=== PATIENT | female | born 1960 | race Caucasian/White ===

== ENCOUNTER 2016-03-26 12:56 | Inpatient (IN) | payer OTHER ==
[~2016-03-26] VITALS: Ht 167.6 cm; Wt 59.0 kg
[~2016-03-26 12:56] MED LIST: FLEXERIL10 MG PO; MEDROL DOSEPAK1 PAC PO; MOTRIN 600 MG600 MG PO; PERCOCET 325 MG1 TA2 PO; PERCOCET 325 MG1 TA3 PO; VALIUM 10 MG. T10 MG PO; VALIUM5 M1 PO; ZOFRAN ODT4 M1 SL
--- NOTE | 2016-03-26 13:07 | NUR ---
PT BIBA FROM HOME FOR HYPERTENSION, AND ?SEIZURE LIKE ACTIVITY. 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 LAST DRINK YESTERDAY MORNING. PT ALSO AMS, ABLE TO ANSWER SOME QUESTIONS APPROPRIATELY. PT +NAUSEA/VOMITING. PT ALSO HAS GARBLED SPEECH. PT ALSO FELL TODAY. PT HAD SEIZURE AFTER ARRIVAL AND WAS GIVEN 2MG IV ATIVAN.
[2016-03-26 13:09] VITALS: BP 212/122
--- NOTE | 2016-03-26 13:15 | NUR ---
PT NOTED HAVE HER EYES OPEN WITH CLENCHING OF HER HANDS AND SCANT AMOUNT OF SALIVA, MD GARNERAMMED AT BEDSIDE WITH PT AND PT MEDICATED ORDERED WITH ATIVAN
--- NOTE | 2016-03-26 13:20 | NUR ---
PT'S SPEECH NOTED TO BE SLURRED AND GARBLED AND UNABLE TO REALLY VERBALIZE RESPONSE. MD IS AWARE OF FINDING
--- NOTE | 2016-03-26 13:20 | NUR ---
PT LEFT AND BACK FROM CAT SCAN
[2016-03-26 13:30] VITALS: BP 202/118
--- NOTE | 2016-03-26 13:39 | ED AMS/SEIZURE/WEAK/DIZZY ---
History of Present Illness General Chief Complaint: General Adult Stated Complaint: ?SEIZURE, HYPERTENSIVE Source: patient, EMS Exam Limitations: confusion Vital Signs & Intake/Output Vital Signs & Intake/Output Vital Signs Date Time Temp Pulse Resp B/P Pulse O2 O2 Flow FiO2 Ox Delivery Rate 03/26 1646 98.6 93 18 196/112 97 Room Air 03/26 1524 99.0 88 18 190/112 98 Room Air 03/26 1523 99.0 88 18 190/112 03/26 1453 198/110 03/26 1414 98.9 94 18 184/110 03/26 1414 94 184/110 03/26 1356 98.9 93 17 196/116 97 Room Air 03/26 1348 98.3 114 17 202/118 03/26 1330 98.8 114 18 202/118 03/26 1330 114 202/118 03/26 1309 98.6 117 18 212/122 03/26 1309 98.6 117 18 212/122 91 Room Air QUITE HYPERTENSIVE. WILL GIVE LABETOLOL FOR HTN (GLEN JOHNSON,JAMIL) Allergies Coded Allergies: Penicillins (Severe, RASH, HIVES 04/14/15) Triage Note: PT BIBA FROM HOME FOR HYPERTENSION, AND ?SEIZURE LIKE ACTIVITY. 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 LAST DRINK YESTERDAY MORNING. PT ALSO AMS, ABLE TO ANSWER SOME QUESTIONS APPROPRIATELY. PT +NAUSEA/VOMITING. PT ALSO HAS GARBLED SPEECH. PT ALSO FELL TODAY. PT HAD SEIZURE AFTER ARRIVAL AND WAS GIVEN 2MG IV ATIVAN. Triage Nurses Notes Reviewed? yes HPI: 55 YO F W/ PMH OF NV, HTN, AND ALCOHOL ABUSE BIBA FOR FALL AND ALTERED MENTAL STATUS. PER EMS, PATIENT WAS WALKING UP THE STAIRS, NOTED TO SLUMP OVER, LEANED ON WALL AND FELL DOWN. PATIENT IS UNABLE TO RECALL ANY OF THE INCIDENT OTHER THAN SHE HAD TO URINATE. UNKNOWN IF THERE WAS HEAD TRAUMA. PER EMS, PATIENT SEEMED LETHARGIC AND POSSIBLY POST-ICTAL WHEN THEY PICKED HER UP. PT WAS NOTED TO BE QUITE HYPERTENSIVE EN ROUTE TO >200s. SOON AFTER ARRIVAL, PATIENT HAD WITNESSED 30-1MINUTE SEIZURE, WHICH RESOLVED. ATIVAN HAD ALREADY BEEN ORDER AND GIVEN PATIENT'S LAST DRINK WAS YESTERDAY, PT GIVEN THE ATIVAN. PT STATES SHE WAS SOBER FOR 9 YRS UP UNTIL LAST WEEK. SHE HAS BEEN DRINKING APPROX 1/2-1PINT OF LIQUOR DAILY SINCE THEN, BUT NONE TODAY. SHE IS UNSURE WHY SHE STARTED DRINKING AGAIN. LATER, SHE ENDORSES STRESS W/ HER AND SOME GAMBLING ISSUES. CURRENTLY, SHE ENDORSES SYED AND L FOOT PAIN. PT DENIES CP, SOB, ABD PAIN , COUGH, N/V/D, FEVERS OR CHILLS. (JAMIL CARROLL MD) Past History Travel History Traveled to [place] past 21 day No Medical History Any Pertinent Medical History? see below for history (ALCOHOLISM) Neurological: NONE EENT: NONE Cardiovascular: myocardial infarction Respiratory: NONE Gastrointestinal: NONE Hepatic: NONE Renal: NONE Musculoskeletal: CERVICAL STENOSIS AND FX Psychiatric: NONE Endocrine: NONE Blood Disorders: NONE Cancer(s): NONE Surgical History Surgical History: , NECK SURGERY Psychosocial History What is your primary language Japanese Daily Tobacco Use Amount/Type: =< 4 Cigarettes daily ETOH Use: alcoholic, SOBER FOR 9YRS UNTIL LAST WEEK. NOW DRINKING 1PINT/D Family History Hx Contributory? Yes (ALCOHOLISM (RELAPSED X1WK)) (JAMIL CARROLL MD) Review of Systems Review of Systems Constitutional: Reports: weakness. Denies: chills, fever. EENTM: Denies: see HPI. Respiratory: Reports: no symptoms. Cardiovascular: Reports: syncope. GI: Reports: no symptoms. Genitourinary: Reports: no symptoms. Musculoskeletal: Reports: no symptoms. Skin: Reports: no symptoms. Neurological/Psychological: Reports: headache, tremors, tonic-clonic seizures. Hematologic/Endocrine: Reports: no symptoms. Immunologic/Allergic: Reports: no symptoms. All Other Systems: Reviewed and Negative (JAMIL CARROLL MD) Physical Exam Physical Exam General Appearance: well developed/nourished, alert, moderate distress Head: atraumatic, normal appearance Eyes: Bilateral: normal appearance, PERRL, EOMI. Ears, Nose, Throat: normal pharynx, normal ENT inspection, DRY MUCOUS MEMBRANES Neck: normal inspection, supple, full range of motion Respiratory: chest non-tender, no respiratory distress, CRACKLES IN R LOWER LUNG BASE Cardiovascular: normal peripheral pulses, tachycardia Gastrointestinal: normal bowel sounds, soft, non-tender, no organomegaly Rectal: deferred Back: normal inspection, normal range of motion Extremities: TTP OVER L 1ST TARSAL/METATARSAL Neurologic/Psych: no motor/sensory deficits, awake, alert, oriented x 3 Skin: intact, normal color, warm/dry Core Measures ACS in differential dx? No CVA/TIA Diagnosis: Yes NIH Stroke Scale: Total 1 Severe Sepsis Present: No Septic Shock Present: No (GLEN JOHNSON,JAMIL) Progress Differential Diagnosis: alcohol intoxication, CVA/stroke, dehydration, drug intoxication, intracranial Hem., HYPERTENSIVE URGERNCY, ALCOHOL WITHDRAWAL SEIZURE Plan of Care: Orders Procedure Date/time Status MAGNESIUM 03/27 0600 Active CBC WITHOUT DIFFERENTIAL 03/27 0600 Active BASIC ELECTROLYTES PLUS BUN&CR 03/27 0600 Active Heart Healthy Diet 03/26 D Active LACTIC ACID 03/26 1700 Active BASIC ELECTROLYTES PLUS BUN&CR 03/26 1700 Active Admit to inpatient 03/26 1627 Active CULTURE,URINE 03/26 1627 Active LOWER RESPIRATORY CULTURE 03/26 1625 Active ECHOCARDIOGRAM 03/26 1624 Active TRC EVALUATION (GEN) 03/26 1623 Active OXYGEN SETUP (GEN) 03/26 1623 Active Code Status 03/26 1619 Active RAPID VIRAL INFLUENZA A 03/26 1603 Active SWALLOW EVALUATION 03/26 1538 Active Pathway - chart 03/26 1538 Active House Staff 03/26 1538 Active SOCIAL WORK CONSULT 03/26 1538 Active Patient Data 03/26 1505 Active Code Status 03/26 1505 Complete CIWA 03/26 1424 Active Telemetry/Thread Marker 03/26 1339 Active URINE DRUGS OF ABUSE 03/26 1339 Complete URINALYSIS 03/26 1339 Complete PROTHROMBIN TIME 03/26 1339 Complete PHOSPHORUS 03/26 1339 Complete MAGNESIUM 03/26 1339 Complete ETHANOL 03/26 1339 Complete COMPREHENSIVE METABOLIC PANEL 03/26 1339 Complete CBC WITHOUT DIFFERENTIAL 03/26 1339 Complete EKG 03/26 1314 Active VTE Mechanical Prophylaxis 03/26 UNK Active Vital Signs 03/26 UNK Active Telemetry/Thread Marker 03/26 UNK Active Seizure Precautions 03/26 UNK Active Precautions 03/26 UNK Active CIWA 03/26 UNK Active PSYCHIATRIC CONSULT 03/26 UNK Active Current Medications Sig/Kary Start time Last Medication Dose Stop Time Status Admin Heparin Sodium 5,000 UNIT Q8 03/26 2200 UNVr (Porcine) Lorazepam 2 MG Q6 03/26 1800 AC (Ativan) Amlodipine Besylate 10 MG DAILY 03/26 1625 UNVr (Norvasc) Acetaminophen 650 MG Q6 PRN 03/26 1545 AC (Tylenol) Lorazepam 0 Q1P PRN 03/26 1545 AC (Ativan) Cyanocobalamin/ 1 BAG DAILY 03/26 1536 AC Thiamine/Pyridoxine (Vitamin in I.V.) Dextrose/Water 1,000 ML (D5W 1000) Laboratory Tests 03/26/16 1350: Urine Opiates Screen < 100.00, Methadone Screen < 40, Barbiturate Screen < 60, Ur Phencyclidine Scrn < 6.00, Amphetamines Screen < 100, U Benzodiazepines Scrn < 85, Urine Cocaine Screen < 50, Urine Cannabis Screen < 5.00, Urinalysis LIGHT H, Urine Color YEL, Urine Clarity HAZY H, Urine pH 6.0, Ur Specific [place] >= 1.030, Urine Protein 100 H, Urine Ketones NEG, Urine Nitrite NEG, Urine Bilirubin NEG, Urine Urobilinogen 0.2, Ur Leukocyte Esterase NEG, Ur Microscopic SEDIMENT EXAMINED, Urine RBC 5-10 H, Urine WBC 3-5 H, Ur Epithelial Cells FEW, Granular Casts 5-10 H, Urine Hemoglobin MOD H, Urine Glucose NEG 03/26/16 1331: Anion Gap 20 H, Estimated GFR > 60, BUN/Creatinine Ratio 10.0, Glucose 151 H, Calcium 8.9, Phosphorus 4.4, Magnesium 1.2 L, Total Bilirubin 0.9, AST 47 H, ALT 35, Alkaline Phosphatase 97, Total Protein 7.7, Albumin 4.4, Globulin 3.3, Albumin/Globulin Ratio 1.3, PT 14.2 H, INR 1.36 H, CBC w Diff NO MAN DIFF REQ, RBC 5.09, MCV 90.8, MCH 30.8, RDW 14.0, MPV 8.6, Gran % 82.5 H, Monocytes % 5.0 , Eosinophils % 0.3, Basophils % 0.4, Absolute Granulocytes 6.2, Absolute Lymphocytes 0.9 L, Absolute Monocytes 0.4, Absolute Eosinophils 0, Absolute Basophils 0, PUBS MCHC 33.9, Serum Alcohol < 10.0 Microbiology 03/26 1626 URINE ROUT: Urine Culture - ORD 03/26 162 LOWER RESP: Respiratory Culture - ORD 03/26 162 LOWER RESP: Gram Stain - ORD 03/26 1603 NASOPHARYN: Influenza Virus A & B Rapid Smear - ORD ON INITIAL EVAL, PATIENT WAS ACTIVELY SEIZING. PATIENT SEIZURE LASTED 30S-1MIN. DESPITE PATIENT HAD STOPPED SEIZING, PATIENT GIVEN 2MG ATIVAN TO PREVENT ANY FURTHER SEIZURES. PT'S INITIAL NEURO EXAM WAS CONCERNING FOR SLURRED SPEECH, AND R ARM DRIFT. CONCERN FOR CVA VS ICH. PT ORDERED FOR CT HEAD/CSPINE. CT NEGATIVE FOR ICH OR ACUTE CVA. CSPINE NEGATIVE FOR ACUTE FRACTURE. GIVEN SIGNIFICANT HYPERTENSION, PATIENT GIVEN LABETOLOL 10MG FOR BP CONTROL. BROUGHT BP DOWN TO 180 SYSTOLICALLY. CXR DOES NOT SHOW EVIDENCE OF ASPIRATION OR PNEUMONIA. LABS SHOW SEVERAL ELECTROLYTE ABNORMALITIES. LOW K AND LOW MAGNESIUM. WILL REPLETE. PT ALSO GIVEN VALIUM 10MG IV PUSH FOR ALCOHOL WITHDRAWAL AND PLACED ON CIWA PROTOCOL. PLAN TO ADMIT PATIENT TO HOSPITALIST FOR BP CONTROL, ALCOHOL WITHDRAWAL SEIZURE. DISCUSSED W/ DR. GONZALEZ. PATIENT IS FULL CODE. (JAMIL CARROLL MD) Diagnostic Imaging: Viewed by Me: Radiology Read, CT Scan. Discussed w/RAD: Radiology Read, CT Scan. Radiology Impression: 1. No evidence of intracranial hemorrhage or skull fracture. 2. Small hypodensity in the left caudate lobe likely represents a small lacunar infarction, of uncertain age. 3. No evidence of cervical spine fracture. 4. Bony fusion across C4-C6 and anterior cervical spinal fusion across C6-C7 is seen with partial hardware failure again seen, unchanged. Grade 1 anterolisthesis of C7 on T1 is unchanged., cxr: No acute pulmonary disease. Chronic changes. Initial ED EKG: nonspecific ST T wave chg, ST depression, SINUS TACHYCARDIA W/ RATE 115. ST DEPRESSIONS V3-V6 (UNCHANGED FROM PRIOR). NONSPECIFIC INTRAVENTRICULAR DELAY (JAMIL CARROLL MD) Departure Departure Time of Disposition: 1516 Disposition: STILL A PATIENT Condition: Stable Clinical Impression Primary Impression: Alcohol withdrawal seizure Secondary Impressions: Fall (on) (from) other stairs and steps, initial encounter, Hypertensive urgency Referrals: JESSICA DEWEY MD (PCP/Family) Departure Forms: Customer Survey General Discharge Information Admission Note Spoke With: WEST GONZALEZ MD Documentation of Exam: Documentation of any treatments & extenuating circumstances including Concerns Regarding Discharge (functional status, medication knowledge or non-compliance, living conditions, etc.) that warrant an admission rather than observation: 55 YO F BEING ADMITTED FOR HYPERTENSIVE URGENCY AND ALCOHOL WITHDRAWAL SEIZURE. WILL REQUIRE TELEMETRY MONITORING, CIWA PROTOCOL, BP CONTROL. POTENTIAL CRISIS MANAGEMENT INPATIENT. SPOKE TO PATIENT, SHE IS FULL CODE. WILL ADMIT TO DR. GONZALEZ. (JAMIL CARROLL MD) Resident Co-Sign Statement Statement: ED Attending supervision documentation- [X] I saw and evaluated the patient. I have also reviewed all the pertinent lab results and diagnostic results. I agree with the findings and the plan of care as documented in the Resident's documentation. [X] I have reviewed the ED Record and agree with the Resident's documentation. [] Additions or exceptions (if any) to the Resident's note and plan are summarized below: [] (JUSTYNA JOHNSON,MICHAEL) ED Attending Observation Initial Observation Note: I have seen and personally examined MIKEL MEAD on 03/26/16 at 1516. I agree with the current emergency department documentation. The disposition (admission or discharge) is uncertain at this time, she needs a period of observation for the following reason(s): The ED Nurse caring for this patient has been personally informed as to what the patient is being observed for. (JAMIL CARROLL MD)
--- NOTE | 2016-03-26 13:49 | NUR ---
PT WAS MEDICATED WITH 5 MG OF LEBATALOL HALF OF THE DOSE ORDERED.WILL REASSESS HER AND ADMINISTER REST IF NEEDED
[2016-03-26 13:53] LABS: ABSOLUTE BASOPHIL COUNT 0 /CUMM (0.0-0.2); ABSOLUTE EOSINOPHIL COUNT 0 /CUMM (0.0-0.7); ABSOLUTE GRANULOCYTE CT 6.2 /CUMM (1.4-6.5); ABSOLUTE LYMPH COUNT 0.9 /CUMM (1.2-3.4); ABSOLUTE MONOCYTE COUNT 0.4 /CUMM (0.10-0.60); BASOPHIL % 0.4 % (0.0-2.0); EOSINOPHIL % 0.3 % (0-5); GRANULOCYTE % 82.5 % (42.2-75.2); HEMATOCRIT 46.2 % (37-47); MEAN CORPUSCULAR HGB 30.8 PG (27.0-31.0); MEAN CORPUSCULAR HGB CONC 33.9 G/DL (33.0-37.0); MEAN CORPUSCULAR VOLUME 90.8 FL (81.0-99.0); MEAN PLATELET VOLUME 8.6 FL (7.4-10.4); PLATELET COUNT 188 /CUMM (130-400); RED BLOOD CELL CT 5.09 /CUMM (4.20-5.40); WHITE BLOOD CELL COUNT 7.5 /CUMM (4.8-10.8)
[2016-03-26 13:57] LABS: PT 14.2 SEC (9.4-12.5)
--- NOTE | 2016-03-26 14:02 | NUR ---
PT'S VITALS IN THE PAST AND MD NUNEZ INFORMED OF FINDING AND REST OF DOSE WAS GIVEN. PT'S SPEECH MORE CLEAR AND NOT GARBLED AND ORIENTED TO SITUATION AND ABLE TO GIVE HX OF INCIDENT. PT STS SHE HAS LEFT FOOT PAIN BY THE DORSAL ASPECT. PT STS UNTIL LAST WEEK SHE WAS SOBER FOR 9YRS AND THEN SHE STARTED DRINKING AGAIN. PT WOULD NOT SAY WHAT CAUSED HER TO START DRINKING. LAST DRINK WAS YESTERDAY NOT SURE OF TIME. PT IS SLEEPING BUT EASILY AROUSABLE
[2016-03-26 14:14] VITALS: BP 184/110
--- NOTE | 2016-03-26 14:17 | RADIOLOGY REPORT ---
EXAMINATION: XR PORTABLE CHEST CLINICAL INFORMATION: Status post fall. Seizure. COMPARISON: Chest x-rays most recent prior dated 05/31/2015 TECHNIQUE: Portable AP view of the chest was obtained. FINDINGS: Stable cardiomediastinal silhouette. Mild crowding of the bronchovascular structures right infrahilar region. No acute airspace opacity. Postoperative changes lower cervical spine. Visualized bony thorax is intact. IMPRESSION: No acute pulmonary disease. Chronic changes.
--- NOTE | 2016-03-26 14:17 | CT SCAN REPORT ---
EXAMINATION: CT OF THE HEAD WITHOUT CONTRAST CT OF THE CERVICAL SPINE WITHOUT CONTRAST CLINICAL INFORMATION: Seizure. EtOH. Fall. Evaluate for bleed. Evaluate for cervical spine fracture. Status post anterior cervical spine fusion. COMPARISON: CT scan of the cervical spine dated 06/26/2014. TECHNIQUE: Contiguous axial imaging was performed from the skull base to vertex without intravenous administration of contrast. DLP: 946.04 mGy-cm. FINDINGS: CT HEAD: Evaluation limited by motion artifact. There is no evidence of acute intracranial hemorrhage or territorial infarction. No abnormal mass-effect or midline shift is seen. Bishop to white matter differentiation is well preserved. No extra-axial fluid collections are identified. The ventricles and sulci are mildly enlarged, consistent with involutional changes. There is a small hypodensity in the left caudate lobe, likely a small lacunar infarction, of uncertain age. Mild calcification in the carotid siphons is seen. The osseous structures and soft tissues are normal. The mastoid air cells and visualized portions of the paranasal sinuses are well-aerated. CT CERVICAL SPINE: No acute fracture or dislocation/subluxation is seen. Anterior spinal fusion hardware is seen at C6-C7 with extensive irregularity and sclerosis of the C6-C7 endplates. The right sided C7 screw is again seen to be fractured and partially anteriorly displaced from the anterior spinal metallic plate, consistent with screw loosening. There is also a small gap between the anterior vertebral margin of C7 and the spinal fusion plate. Similar findings were seen previously. Remainder of the cervical fusion hardware is intact. There is grade 1 anterolistheses of C7 on T1, unchanged. There is bony fusion across C4-C5 and C5-C6, unchanged. Prominent hypertrophic changes are seen at the atlantoaxial articulation and the craniocervical junction, unchanged. Moderate facet arthropathy is seen at the left C2-C3, C3-C4, and C4-C5 levels. Mild facet arthropathy is seen at the remaining cervical levels. Soft tissues are unremarkable. Lung apices are clear. IMPRESSION: 1. No evidence of intracranial hemorrhage or skull fracture. 2. Small hypodensity in the left caudate lobe likely represents a small lacunar infarction, of uncertain age. 3. No evidence of cervical spine fracture. 4. Bony fusion across C4-C6 and anterior cervical spinal fusion across C6-C7 is seen with partial hardware failure again seen, unchanged. Grade 1 anterolisthesis of C7 on T1 is unchanged.
--- NOTE | 2016-03-26 14:20 | NUR ---
PT HAS IV NS INFUSUNG
--- NOTE | 2016-03-26 14:20 | NUR ---
CRITICAL TEST RESULTS [id number] MIKEL MEAD 55 F TESTS AND RESULTS: POTASSIUM 2.8 Results received and read back by: BRENT LION Results received date and time: 03/26/16 1420 The following provider was notified of the results, and read the results back: DR JANSEN Notified date and time: 03/26/16 at 1420
--- NOTE | 2016-03-26 14:27 | NUR ---
PT LEFT FOR RADIOLOGY
--- NOTE | 2016-03-26 15:06 | NUR ---
MED WITH POTASSIUM 40MEQ PO, TOLERATED WELL. IVF'S NS BOLUS CONINTUES TO INFUSE, MAGNESIUM 1GM INFUSING ORDERED, IV POTASSIUM 10 MEQ INFUSING WITHOUT DIFFICULTY AT THIS TIME, PT ASSIST ONTO BEDPAN FOR BM, PT UNABLE TO GO AT THIS TIME. REPOSITIONED FOR COMFORT, CRANE CATH INTACT, DRAINING ADEQUATE AMOUNTS OF DARK YELLOW URINE.
--- NOTE | 2016-03-26 15:14 | NUR ---
PT MEDICATED ORDERED SEE MAR
--- NOTE | 2016-03-26 15:15 | RADIOLOGY REPORT ---
EXAMINATION: XR FOOT, LEFT CLINICAL INFORMATION: Tenderness to palpation over first tarsal bone COMPARISON: None TECHNIQUE: AP, lateral, and oblique views of the left foot. FINDINGS: No fracture. No dislocation. No focal bone lesion or periosteal reaction. There is joint narrowing with marginal spurs of bone at the first MTP joint but no erosion. No soft tissue calcification. IMPRESSION: No acute abnormality of the foot. 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
--- NOTE | 2016-03-26 15:22 | NUR ---
PT MEDICATED FOR SYED OF 09/16
[2016-03-26 15:23] VITALS: BP 190/112
--- NOTE | 2016-03-26 15:31 | History & Physical ---
KAMERON OSORIO 03/26/16 1529: General Information and HPI MD Statement: I have seen and personally examined MIKEL MEAD and documented this H&P. The patient is a 55 year old F who presented with a patient stated chief complaint of [s/p seizure like activity, alterd mental status, alcohol withdrawl ]. Source of Information: patient Exam Limitations: no limitations History of Present Illness: 55-year-old female with a past medical history of stress-induced MD status post In 2010, hypertension noncompliant with medications, history of non-nodule on CT chest in 2014, chronic pain due to surgery for a cyst, anxiety presented to the F which he is seizure-like activity, alcohol withdrawal and was found to be hypertensive to 212 systolic. According to the patient, she got out of bed this morning and went upstairs to use the restroom, felt dizzy and lightheaded and saw some spots in front of her eyes after which she fell down. The episode was witnessed by her sister who states that she slumped overlain on the wall and fell down. Patient is unaware of what happened subsequently however her sister called EMS and brought her in. When EMS arrived she seemed to be very lethargic and possibly in a postictal state. She was also found to be hypertensive in route to greater than 200 systolic. In the ED she underwent a witnessed 30 seconds to 1 minute generalized tonic- clonic seizure which resolved after 1 mg of Ativan was given. She was found to have slurred speech postictally as well as some right-sided arm drift is and so stroke protocol was initiated and she ended up getting a CT scan which was negative for any acute intracranial hemorrhage. Of note patient had been sober for almost 9 years before she started to relapse and drank about a week ago as her significant stress in her family with her having restraining orders. She states that she has about 1 nip of alcohol about 20 times a day and she's been doing that for the past 1 week now. Patient denies any chest pain, shortness of breath, abdominal pain, nausea, vomiting, diarrhea, fever, chills but does admit to a throbbing headache which is worse every time she coughs. She states that she caught a cold and has been coughing for the past 1 week now. She is bringing up phlegm but is unsure whether or not it is purulent. Of note her last drink was yesterday morning. She has not been taking her medications because of insurance issues for the past 6-8 months now. She was on amlodipine 10 mg daily. She seems a little labile in terms of her mood but currently denies any suicidal or homicidal ideation. She states that she wants to let for her son. She also complained of left foot pain s/p fall. Allergies/Medications Allergies: Coded Allergies: Penicillins (Severe, RASH, HIVES 04/14/15) Compliance With Home Meds: POOR Past History Travel History Traveled to [place] past 21 day No Medical History Neurological: NONE EENT: NONE Cardiovascular: hypertension, stress induced MD Respiratory: NONE Gastrointestinal: NONE Hepatic: NONE Renal: NONE Musculoskeletal: CERVICAL STENOSIS AND FX Psychiatric: NONE Endocrine: NONE Blood Disorders: NONE Cancer(s): NONE Surgical History Surgical History: , NECK SURGERY Past Family/Social History Family History Relations & Conditions if any MOTHER CABG Psychosocial History Smoking Status: Former Smoker ETOH Use: alcoholic, SOBER FOR 9YRS UNTIL LAST WEEK. NOW DRINKING 1PINT/D Illicit Drug Use: denies illicit drug use Review of Systems Review of Systems Constitutional: Denies: chills, fever, weakness. Cardiovascular: Reports: palpitations, syncope. Denies: chest pain, orthopena, peripheral edema. Respiratory: Reports: cough. Denies: hemoptysis, orthopnea, short of breath, wheezing. GI: Denies: abdominal pain, constipation, diarrhea, nausea, vomiting. Genitourinary: Reports: no symptoms. Musculoskeletal: Denies: back pain. Neurological/Psychological: Reports: headache, tonic-clonic seizures, weakness. Denies: anxiety, ataxia, numbness, tingling, tremors, unable to move lower ext, unable to move upper ext. Exam & Diagnostic Data Last 24 Hrs of Vital Signs/I&O Vital Signs Date Time Temp Pulse Resp B/P Pulse O2 O2 Flow FiO2 Ox Delivery Rate 03/26 1524 99.0 88 18 190/112 98 Room Air 03/26 1523 99.0 88 18 190/112 03/26 1453 198/110 03/26 1414 98.9 94 18 184/110 03/26 1414 94 184/110 03/26 1356 98.9 93 17 196/116 97 Room Air 03/26 1348 98.3 114 17 202/118 02/17 1330 98.8 114 18 202/118 03/26 1330 114 202/118 03/26 1309 98.6 117 18 212/122 03/26 1309 98.6 117 18 122 91 Room Air Intake & Output 03/26 1600 03/26 0800 03/26 0000 Intake Total 30 Output Total Balance 30 Intake, IV 30 Patient 150 lb Weight Physical Exam General Appearance Alert, Oriented X3, Cooperative, No Acute Distress HEENT Atraumatic, PERRLA, EOMI, DRYMUCOUS MEMBRANES Neck Supple, No JVD, +2 Carotid Pulse wo Bruit, No LAD Cardiovascular Normal S1, Normal S2, No Murmurs, Gallops Lungs MILD BILATERAL WHEEZES Abdomen Normal Bowel Sounds, Soft, No Tenderness Neurological Normal Speech, Strength at 5/5 X4 Ext, Normal Tone, Sensation Intact, Cranial Nerves 3-12 NL, Reflexes 2+ Extremities No Clubbing, No Cyanosis, No Edema, Normal Pulses, No Tenderness/ Swelling Last 24 Hrs of Labs/K[place]on: Laboratory Tests 03/26/16 1350: Urine Opiates Screen < 100.00, Methadone Screen < 40, Barbiturate Screen < 60, Ur Phencyclidine Scrn < 6.00, Amphetamines Screen < 100, U Benzodiazepines Scrn < 85, Urine Cocaine Screen < 50, Urine Cannabis Screen < 5.00, Urinalysis LIGHT H, Urine Color YEL, Urine Clarity HAZY H, Urine pH 6.0, Ur Specific [place] >= 1.030, Urine Protein 100 H, Urine Ketones NEG, Urine Nitrite NEG, Urine Bilirubin NEG, Urine Urobilinogen 0.2, Ur Leukocyte Esterase NEG, Ur Microscopic SEDIMENT EXAMINED, Urine RBC 5-10 H, Urine WBC 3-5 H, Ur Epithelial Cells FEW, Granular Casts 5-10 H, Urine Hemoglobin MOD H, Urine Glucose NEG 03/26/16 1331: Anion Gap 20 H, Estimated GFR > 60, BUN/Creatinine Ratio 10.0, Glucose 151 H, Calcium 8.9, Phosphorus 4.4, Magnesium 1.2 L, Total Bilirubin 0.9, AST 47 H, ALT 35, Alkaline Phosphatase 97, Total Protein 7.7, Albumin 4.4, Globulin 3.3, Albumin/Globulin Ratio 1.3, PT 14.2 H, INR 1.36 H, CBC w Diff NO MAN DIFF REQ, RBC 5.09, MCV 90.8, MCH 30.8, RDW 14.0, MPV 8.6, Gran % 82.5 H, Monocytes % 5.0 , Eosinophils % 0.3, Basophils % 0.4, Absolute Granulocytes 6.2, Absolute Lymphocytes 0.9 L, Absolute Monocytes 0.4, Absolute Eosinophils 0, Absolute Basophils 0, PUBS MCHC 33.9, Serum Alcohol < 10.0 Microbiology 03/26 1625 LOWER RESP: Respiratory Culture - ORD 03/26 162 LOWER RESP: Gram Stain - ORD 03/26 1603 NASOPHARYN: Influenza Virus A & B Rapid Smear - ORD Diagnostic Data EKG Results Sinus tachycardia with a heart rate of 1:15, normal axis, left ventricular hypertrophy, QTC of 520 with Q waves in aVL and mild ST depression in lateral leads CXR Results FINDINGS: Stable cardiomediastinal silhouette. Mild crowding of the bronchovascular structures right infrahilar region. No acute airspace opacity. Postoperative changes lower cervical spine. Visualized bony thorax is intact. IMPRESSION: No acute pulmonary disease. Chronic changes. Other Results SERVICE DATE: 03/26/16 EXAM TYPE: CAT - CT CERV SPINE WO IV CONTRAST; CT HEAD WO IV CONTRAST EXAMINATION: CT OF THE HEAD WITHOUT CONTRAST CT OF THE CERVICAL SPINE WITHOUT CONTRAST CLINICAL INFORMATION: Seizure. EtOH. Fall. Evaluate for bleed. Evaluate for cervical spine fracture. Status post anterior cervical spine fusion. COMPARISON: CT scan of the cervical spine dated 06/26/2014. TECHNIQUE: Contiguous axial imaging was performed from the skull base to vertex without intravenous administration of contrast. DLP: 946.04 mGy-cm. FINDINGS: CT HEAD: Evaluation limited by motion artifact. There is no evidence of acute intracranial hemorrhage or territorial infarction. No abnormal mass-effect or midline shift is seen. Bishop to white matter differentiation is well preserved. No extra-axial fluid collections are identified. The ventricles and sulci are mildly enlarged, consistent with involutional changes. There is a small hypodensity in the left caudate lobe, likely a small lacunar infarction, of uncertain age. Mild calcification in the carotid siphons is seen. The osseous structures and soft tissues are normal. The mastoid air cells and visualized portions of the paranasal sinuses are well-aerated. CT CERVICAL SPINE: No acute fracture or dislocation/subluxation is seen. Anterior spinal fusion hardware is seen at C6-C7 with extensive irregularity and sclerosis of the C6-C7 endplates. The right sided C7 screw is again seen to be fractured and partially anteriorly displaced from the anterior spinal metallic plate, consistent with screw loosening. There is also a small gap between the anterior vertebral margin of C7 and the spinal fusion plate. Similar findings were seen previously. Remainder of the cervical fusion hardware is intact. There is grade 1 anterolistheses of C7 on T1, unchanged. There is bony fusion across C4-C5 and C5-C6, unchanged. Prominent hypertrophic changes are seen at the atlantoaxial articulation and the craniocervical junction, unchanged. Moderate facet arthropathy is seen at the left C2-C3, C3-C4, and C4-C5 levels. Mild facet arthropathy is seen at the remaining cervical levels. Soft tissues are unremarkable. Lung apices are clear. IMPRESSION: 1. No evidence of intracranial hemorrhage or skull fracture. 2. Small hypodensity in the left caudate lobe likely represents a small lacunar infarction, of uncertain age. 3. No evidence of cervical spine fracture. 4. Bony fusion across C4-C6 and anterior cervical spinal fusion across C6-C7 is seen with partial hardware failure again seen, unchanged. Grade 1 anterolisthesis of C7 on T1 is unchanged. SERVICE DATE: 03/26/16 EXAM TYPE: RAD - XRY-FOOT COMPLETE, LEFT EXAMINATION: XR FOOT, LEFT CLINICAL INFORMATION: Tenderness to palpation over first tarsal bone COMPARISON: None TECHNIQUE: AP, lateral, and oblique views of the left foot. FINDINGS: No fracture. No dislocation. No focal bone lesion or periosteal reaction. There is joint narrowing with marginal spurs of bone at the first MTP joint but no erosion. No soft tissue calcification. IMPRESSION: No acute abnormality of the foot. 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 Assessment/Plan Assessment: 55-year-old female with a past medical history of stress-induced MD status post cath in 2010, history of non-nodule on CT chest 2014, chronic pain due to cervical stenosis, anxiety presents to the ED with chief complaints of questionable seizure-like activity and was found to be hypertensive to 212 systolic in the setting of having consumed alcohol. In the ED patient was actively seizing and his episode lasted for about 30 seconds to 1 minute. His initial neuro exam was concerning as per speech and right arm drift after which a CT head and cervical spine was ordered which was negative for intracranial hemorrhage. Vitals at the time of admission blood pressure 184/110, respiratory rate 18, pulse 94, afebrile saturating 97% on room air. On physical exam she is alert, oriented 3, cooperative and in no acute distress lying comfortably in bed. HEENT revealed PERRLA, dry mucous membranes with a slight bite tony on her tongue on the right side. Neck was supple, no JVD, 2+ carotid pulse with and without bruit, no lymphadenopathy. Cardiovascular exam was benign with normal S1, S2 no murmurs or gallops appreciated. Auscultation of chest revealed mild bilateral wheezes. Abdominal exam is benign with normal bowel sounds, abdomen soft, nontender, nondistended. Neuro exam was grossly unremarkable. Examination of the extremities did not reveal any edema nor tenderness or swelling. Labs pertinent for a normal white blood cell count of 7500, H&H of 15.7/46.2, platelet count of 188,000. Serum chemistries revealed a sodium of 137, potassium of 2.8, chloride 92, bicarbonate 25 with an elevated anion gap of 20, BUN 8 and a creatinine of 0.8. Serum magnesium was also low at 1.2. LFTs revealed total bili of 0.9, AST/ALT of 47/35 and an alkaline phosphatase of 97. Coags revealed an INR of 1.36. UA was hazy with proteinuria, 5-10 rbc's and 3-5 white blood cells. There also 5-10 white granular casts with moderate amount of hemoglobin. Urine tox revealed a serum alcohol level less than 10, and tox screen was negative. CT cervical spine and head without IV contrast showed no evidence of intracranial hemorrhage or skull fracture, a small hypodensity in the left caudate lobe most likely consistent with a lack in her infarct of uncertain age, no evidence of cervical spine fracture, bony fusion across C4 to C6 and anterior spinal fusion across C6 to C7. Chest x-ray was done which showed no acute pulmonary disease and chronic changes. Foot x-ray was done which showed no acute abnormality of the foot, degenerative joint disease of the first metatarsophalangeal joint. EKG showed sinus tachycardia with a heart rate of 1:15, ST depressions V3 2 weeks 6 which were unchanged from prior and nonspecific intraventricular delay In the ED he received 2 mg IV Ativan, 2 g of mag sulfate, 40 mEq of K-Julisa orally and 10 mEq of KCl IV. 10 mg IV Valium labetalol 10 mg after which his blood pressure came down to 180 systolic from 212 systolic. Her CIWA scores in the ED ranged from 4-10 more so on nausea, vomiting. Assessment and plan Admit patient to telemetry given hypertensive emergency. #Hyperrtensive emergency Most likely secondary to noncompliance with medications as well as alcohol withdrawal We'll start her on labetalol 200 mg twice a day by mouth She already received amlodipine 10 mg 1 in the ER which didn't help with her blood pressure. Goal blood pressure is to keep it above 180 systolic for now and decrease of about 25% subsequently Echocardiogram given long-standing hypertension Cardio consult in AM (patient was seen by Dr. Levi in past) #Alcohol withdrawal CT no detox per protocol with Ativan 2 mg IV every 6 scheduled as well as Ativan per CIWA scores Banana bag for now with transition to oral multivitamins in a.m. Maintain on seizure precautions Maintain on aspiration precautions Psych consult in a.m. Social work consult in a.m. #Hypokalemia and hypomagnesemia Most likely secondary to alcoholism She already got repleted with 40 mEq of oral potassium as well as 10 mEq of IV run 1 and 2 g of magnesium sulfate 1 Follow-up repeat BEP at 5 PM Replete accordingly Continue to monitor BEP #Anion gap acidosis Most likely 2/2 to lactic acidosis Check serum lactic acid Hydrate with fluids accordingly # Transaminitis Most likely secondary to alcoholism versus Gilbert's syndrome (given she had decraesed PO intake) #DVT prophylaxis Heparin 5000 international units 3 times a day subcutaneous Diet Heart healthy CODE STATUS Full code As Ranked By This Provider Problem List: 1. Alcohol withdrawal seizure 2. Hypertensive urgency Core Measures/Miscellaneous Acute Coronary Syndrome ACS Diagnosis: No Cerebrovascular Accident CVA/TIA Diagnosis: No Congestive Heart Failure CHF Diagnosis: No Venous Thromboembolism VTE Risk Factors: Age > 40 VTE Prophylaxis Ordered Inpt: Pharm- Heparin No Mech VTE prophylaxis d/t: No contraindications No VTE Pharm Prophylaxis d/t: No contraindications VTE Diagnosis: No VTE Type: NONE VTE Confirmed by (Test): NONE Severe Sepsis Severe Sepsis Present: No Septic Shock Septic Shock Present: No Miscellaneous Documentation Attending Case Discussed With: WEST GONZALEZ MD Primary Care Physician: JESSICA DEWEY MD Patient sees these Specialists None Level of Patient Care: Telemetry Consults Needed: Consulting Specialty: Cardiology Resident Review Statement Resident Statement: admitted by resident WEST GONZALEZ MD 03/27/16 1600: Attending MD Review Statement Attending Statement Attending MD Statement: examined this patient, discuss w/resident/PA/RUBBER GOODS REPAIRER, agreed w/resident/PA/RUBBER GOODS REPAIRER, reviewed EMR data (avail) Attending Assessment/Plan: 55F PMH HTN, CAD, chronic pain, chronic EtOH abuse admitted with alcohol withdrawal and hypertensive urgency. Patient is mildly agitated but communicative and cooperative. BP improved after Labetalol in ED. Given Ativan and Valium as well with improvement. Hypokalemia and hypomagnesemia repleted. Plan - Ativan 2mg q6h - Ativan 1mg q1h PRN per CIWA - Aggresively replete Mg and K - COntinue IV hydration - Continue home medications - DVT PPx
--- NOTE | 2016-03-26 15:51 | NUR ---
PT MOVED BOWELS NOTED TO BE MUCUSY ORANGE AND GUAIC NEGATIVE MD AWARE OF FINDING AND ALSO NOTIFIED PT IS LOOKING TO GET SOMETHING ELSE FOR SYED
--- NOTE | 2016-03-26 16:07 | NUR ---
HOUSE STAFF AT BEDSIDE TO SABA PT
--- NOTE | 2016-03-26 16:16 | NUR ---
PT COMPLETED IV MAG AND SECOND BAG INFUSING
--- NOTE | 2016-03-26 16:45 | NUR ---
PT MEDICATED WITH IV TYLENOL ORDERED
[2016-03-26 16:47] VITALS: BP 190/112
--- NOTE | 2016-03-26 17:20 | NUR ---
PT HAS IV BANANA BAG INFUSING AND ART HISTORY INSTRUCTOR AT BEDSIDE TO COMPLETE SWALLOW EVAL
--- NOTE | 2016-03-26 17:30 | NUR ---
PT MEDICATED ORDERED
--- NOTE | 2016-03-26 17:40 | NUR ---
1700 BLOOD WORK COLLECTED AND SENT TO [facility] AND ANNA TUBES COLLECTED
--- NOTE | 2016-03-26 18:40 | NUR ---
BARRATTE OPERATOR ELI OF PT'S CONSISTENT HIGH PRESSURES AND SHE WILL BE EVALUATING AND PUTTING IN MEDICATION
[2016-03-26 18:50] VITALS: BP 194/110
--- NOTE | 2016-03-26 18:51 | NUR ---
PT HAD ANOTHER BM SAME BEFORE VERY MUCUSY AND YELLOWISH. INCONTINENT CARE GIVEN AND ALL SHEETS CHANGED AND PT MEDICATED ORDERED AND GIVEN MEAL TRAY
--- NOTE | 2016-03-26 18:54 | NUR ---
MIKEL MEAD Nurse Note by: ESPINOZA ANTHONY I agree with the PROCESS TECHNICIAN findings/evaluation of this patient's condition. Entered by: ESPINOZA ANTHONY Date: 03/26/16 Time: 6378
--- NOTE | 2016-03-26 19:14 | NUR ---
PT ASSIGNED TO ROOM 175
[2016-03-27 00:58] VITALS: BP 138/84
[2016-03-27 08:00] VITALS: BP 140/80
[2016-03-27 08:19] LABS: ABSOLUTE BASOPHIL COUNT 0 /CUMM (0.0-0.2); ABSOLUTE EOSINOPHIL COUNT 0.2 /CUMM (0.0-0.7); ABSOLUTE GRANULOCYTE CT 5.4 /CUMM (1.4-6.5); ABSOLUTE LYMPH COUNT 2.1 /CUMM (1.2-3.4); ABSOLUTE MONOCYTE COUNT 0.5 /CUMM (0.10-0.60); PLATELET COUNT 133 /CUMM (130-400); WHITE BLOOD CELL COUNT 8.2 /CUMM (4.8-10.8)
[2016-03-27 09:12] LABS: BASOPHIL % 0.4 % (0.0-2.0); EOSINOPHIL % 2.3 % (0-5); MEAN CORPUSCULAR HGB 31.5 PG (27.0-31.0); MEAN CORPUSCULAR HGB CONC 34.5 G/DL (33.0-37.0); MEAN CORPUSCULAR VOLUME 91.1 FL (81.0-99.0); MEAN PLATELET VOLUME 9.5 FL (7.4-10.4)
[2016-03-27 09:20] LABS: HEMATOCRIT 36.4 % (37-47)
--- NOTE | 2016-03-27 09:21 | PN- Housestaff ---
See Addendum Subjective Follow-up For: Hypertensive emergency EtOH dependence/withdrawal Subjective: Patient seen and examined. Offers no complaints. Denies chest pain, headache, shortness of breath, nausea, vomiting, abdominal pain. Blood pressure 140/80 this morning. Vital signs stable. No overnight events reported. CIWA ranging 2-10. Review of Systems Constitutional: Denies: see HPI. Objective Last 24 Hrs of Vital Signs/I&O Vital Signs Date Time Temp Pulse Resp B/P Pulse O2 O2 Flow FiO2 Ox Delivery Rate 03/27 0800 98.1 89 18 140/80 95 Room Air 03/27 0058 98.6 93 16 138/84 94 Room Air 03/26 1958 97.3 97 16 187/88 03/26 1958 97.3 98 18 187/88 96 03/26 1904 99 Room Air 03/26 1852 98.7 92 18 194/110 97 Room Air 03/26 1850 98.7 92 18 194/110 03/26 1731 98.6 88 18 196/112 03/26 1647 99.0 88 18 190/112 03/26 1646 98.6 93 18 196/112 97 Room Air 03/26 1524 99.0 88 18 190/112 98 Room Air 03/26 1523 99.0 88 18 190/112 03/26 1453 198/110 03/26 1414 98.9 94 18 184/110 03/26 1414 94 184/110 03/26 1356 98.9 93 17 196/116 97 Room Air 03/26 1348 98.3 114 17 202/118 03/26 1330 98.8 114 18 202/118 03/26 1330 114 202/118 03/26 1309 98.6 117 18 212/122 03/26 1309 98.6 117 18 212/122 91 Room Air Intake & Output 03/27 1600 03/27 0800 03/27 0000 Intake Total 570 350 Output Total 1100 250 Balance -530 100 Intake, IV 450 250 Intake, Oral 120 100 Output, Urine 1100 250 Patient 130 lb Weight Physical Exam General Appearance: Alert, Oriented X3, Cooperative, No Acute Distress Skin: No Rashes, No Breakdown, No Significant Lesion HEENT: Atraumatic, PERRLA, EOMI, Mucous Membr. moist/pink Neck: Supple, No JVD, No thryomegaly, +2 Carotid Pulse wo Bruit, No LAD Lymphatic: Axillary nl, Cervical nl Cardiovascular: Regular Rate, Normal S1, Normal S2, No Murmurs Lungs: Clear to Auscultation (exp wheezes ) Abdomen: Normal Bowel Sounds, Soft, No Tenderness, No Hepatospenomegaly, No Masses Neurological: Normal Speech, Strength at 5/5 X4 Ext, Normal Tone, Sensation Intact, Cranial Nerves 3-12 NL, Reflexes 2+ Extremities: No Clubbing, No Cyanosis, No Edema, Normal Pulses, No Tenderness/ Swelling Vascular: Pulses Symmetrical Assessment/Plan Assessment: This is a 55-year-old female with a past medical history of stress-induced GA status post cath in 2010, history of non-nodule on CT chest 2014, chronic pain due to cervical stenosis, anxiety presents to the ED with chief complaints of questionable seizure-like activity and was found to be hypertensive to 212 systolic in the setting of having consumed alcohol. Problem list/plan: #Hyperrtensive emergency * Most likely secondary to noncompliance with medications as well as alcohol withdrawal * Blood pressure is systolic 140s, diastolic 80s * Continue with labetalol 200 mg twice a day by mouth * Continue with amlodipine 10 mg by mouth daily * Echocardiogram pending * Cardio consult #Alcohol withdrawal: * CIWA per protocol with Ativan 2 mg IV every 6 scheduled as well as Ativan per CIWA scores * Banana bag with transition to oral multivitamins * Maintain on seizure precautions * Maintain on aspiration precautions * Psych consult/Social work consult #Hypokalemia and hypomagnesemia * Most likely secondary to alcoholism * She received with 40 mEq of oral potassium as well as 10 mEq of IV run 1 and 2 g of magnesium sulfate 1 * Potassium 2.7 this morning, magnesium 1.1 * Will Replete accordingly #Anion gap acidosis;resolved * Most likely 2/2 to lactic acidosis * Check serum lactic acid; normalize to 2 * Hydrate with fluids accordingly # Transaminitis * Most likely secondary to alcoholism versus Gilbert's syndrome (given she had decraesed PO intake) #DVT prophylaxis * Heparin 5000 international units 3 times a day subcutaneous #Diet * Cardiac diet #CODE STATUS * Full code Problem List: 1. Alcohol withdrawal seizure 2. Hypertensive emergency Pain Ratin Pain Location: NA Pain Goal: Remain pain free Pain Plan: Tylenol when necessary Tomorrow's Labs & Rationales: BEP including magnesium to monitor electrolytes Consulting Request: Consulting Specialty: Cardiology BEP including magnesium to monitor electrolytes Consulting Request: Consulting Specialty: Cardiology
--- NOTE | 2016-03-27 12:09 | Cons- Cardiology ---
General Information and HPI Consulting Request Date of Consult: 03/27/16 Requested By: WEST GONZALEZ MD Reason for Consult: Uncontrolled hypertension in a patient with a history of heart disease. Source of Information: patient, old records Exam Limitations: no limitations History of Present Illness: The patient is a 55-year-old female who allegedly had a stress-induced myocardial infarction in 2010, treated at [facility]. We don't have details on this. However she was not told of any ischemic heart disease etc. She was told of hypertension and put on medications. However she has been noncompliant with medications. She has intermittent issues with alcoholism and has been drinking for the past week. Yesterday she was admitted for change in mental status and possible syncopal episode. She was noted to have a seizure in the emergency department. This was thought to be an alcohol withdrawal seizure. She was also quite hypertensive with blood pressures in the 200-210/120 range. This has responded to labetalol and pain treatment and her blood pressure is more normal now. She did not report any chest pain or shortness of breath. She was seen once in the emergency room in May 2015 and recommended to follow-up with cardiology but she apparently did not. She has apparently not had medical insurance over the past year or so but claims that she has insurance at this time, but this has not been verified. Allergies/Medications Allergies: Coded Allergies: Penicillins (Severe, RASH, HIVES 04/14/15) Review of Systems Review of Systems: She is complaining of pain in her feet. Past History Travel History Traveled to [place] past 21 day No Medical History Neurological: NONE EENT: NONE Cardiovascular: hypertension, stress induced AR Respiratory: NONE Gastrointestinal: NONE Hepatic: NONE Renal: NONE Musculoskeletal: CERVICAL STENOSIS AND FX Psychiatric: NONE Endocrine: NONE Blood Disorders: NONE Cancer(s): NONE Surgical History Surgical History: , NECK SURGERY Family History Relations & Conditions If Any: MOTHER CABG Psychosocial History Where Do You Live? Home Smoking Status: Former Smoker ETOH Use: alcoholic, SOBER FOR 9YRS UNTIL LAST WEEK. NOW DRINKING 1PINT/D Illicit Drug Use: denies illicit drug use Exam & Diagnostic Data Vital Signs and I&O Vital Signs Date Time Temp Pulse Resp B/P Pulse O2 O2 Flow FiO2 Ox Delivery Rate 03/27 0955 100 148/98 03/27 0955 100 148/98 03/27 0800 98.1 89 18 140/80 95 Room Air 03/27 0058 98.6 93 16 138/84 94 Room Air 03/26 195 97.3 97 16 187/88 03/26 1959 97.3 98 18 187/88 96 03/26 1904 99 Room Air 03/26 1852 98.7 92 18 194/110 97 Room Air 03/26 1850 98.7 92 18 194/110 03/26 1731 98.6 88 18 196/112 03/26 1647 99.0 88 18 190/112 03/26 1646 98.6 93 18 196/112 97 Room Air 03/26 1524 99.0 88 18 190/112 98 Room Air 03/26 1523 99.0 88 18 190/112 03/26 1453 198/110 03/26 1414 98.9 94 18 184/110 03/26 1414 94 184/110 03/26 1356 98.9 93 17 196/116 97 Room Air 03/26 1348 98.3 114 17 202/118 03/26 1330 98.8 114 18 202/118 03/26 1330 114 202/118 03/26 1309 98.6 117 18 212/122 03/26 1309 98.6 117 18 212/122 91 Room Air Intake & Output 03/27 1600 03/27 0800 03/27 0000 03/26 1600 03/26 0800 03/26 0000 Intake Total 570 350 30 Output Total 1100 250 Balance -530 100 30 Intake, IV 450 250 30 Intake, Oral 120 100 Output, Urine 1100 250 Patient 130 lb 150 lb Weight Physical Exam: She is a somewhat chronically ill-appearing middle-aged female in no acute distress. HEENT exam is normal Neck veins not distended Carotids normal without bruits Chest clear Heart regular rhythm no murmurs, gallops or rubs Abdomen benign Extremities no edema Labs/Kameron Results: Laboratory Tests 03/27 03/26 03/26 0640 2125 1737 Chemistry Sodium (137 - 145 mmol/L) 136 L 137 Potassium (3.5 - 5.1 mmol/L) 2.7 *L 3.0 L Chloride (98 - 107 mmol/L) 101 99 Carbon Dioxide (22 - 30 mmol/L) 27 24 Anion Gap (5 - 16) 9 14 BUN (7 - 17 mg/dL) 5 L 6 L Creatinine (0.5 - 1.0 mg/dL) 0.8 0.7 Estimated GFR (>60 ml/min) > 60 > 60 BUN/Creatinine Ratio (7 - 25 %) 6.3 L 8.6 Lactic Acid (0.7 - 2.1 mmol/L) 2.0 4.4 H Magnesium (1.6 - 2.3 mg/dL) 1.5 L 1.8 Troponin I (< 0.11 ng/ml) Pending Hematology CBC w Diff NO MAN DIFF REQ WBC (4.8 - 10.8 /CUMM) 8.2 RBC (4.20 - 5.40 /CUMM) 4.00 L Hgb (12.0 - 16.0 G/DL) 12.6 Hct (37 - 47 %) 36.4 L MCV (81.0 - 99.0 FL) 91.1 MCH (27.0 - 31.0 PG) 31.5 H RDW (11.5 - 14.5 %) 14.0 Plt Count (130 - 400 /CUMM) 133 MPV (7.4 - 10.4 FL) 9.5 Gran % (42.2 - 75.2 %) 66.0 Lymphocytes % (20.5 - 51.1 %) 25.4 Monocytes % (1.7 - 9.3 %) 5.9 Eosinophils % (0 - 5 %) 2.3 Basophils % (0.0 - 2.0 %) 0.4 Absolute Granulocytes (1.4 - 6.5 /CUMM) 5.4 Absolute Lymphocytes (1.2 - 3.4 /CUMM) 2.1 Absolute Monocytes (0.10 - 0.60 /CUMM) 0.5 Absolute Eosinophils (0.0 - 0.7 /CUMM) 0.2 Absolute Basophils (0.0 - 0.2 /CUMM) 0 PUBS MCHC (33.0 - 37.0 G/DL) 34.5 03/26 03/26 1350 1331 Chemistry Sodium (137 - 145 mmol/L) 137 Potassium (3.5 - 5.1 mmol/L) 2.8 *L Chloride (98 - 107 mmol/L) 92 L Carbon Dioxide (22 - 30 mmol/L) 25 Anion Gap (5 - 16) 20 H BUN (7 - 17 mg/dL) 8 Creatinine (0.5 - 1.0 mg/dL) 0.8 Estimated GFR (>60 ml/min) > 60 BUN/Creatinine Ratio (7 - 25 %) 10.0 Glucose (65 - 99 mg/dL) 151 H Calcium (8.4 - 10.2 mg/dL) 8.9 Phosphorus (2.5 - 4.5 mg/dL) 4.4 Magnesium (1.6 - 2.3 mg/dL) 1.2 L Total Bilirubin (0.2 - 1.3 mg/dL) 0.9 AST (14 - 36 U/L) 47 H ALT (9 - 52 U/L) 35 Alkaline Phosphatase (<127 U/L) 97 Total Protein (6.3 - 8.2 g/dL) 7.7 Albumin (3.5 - 5.0 g/dL) 4.4 Globulin (1.9 - 4.2 gm/dL) 3.3 Albumin/Globulin Ratio (1.1 - 2.2 %) 1.3 Coagulation PT (9.4 - 12.5 SEC) 14.2 H INR (0.90 - 1.19) 1.36 H Hematology CBC w Diff NO MAN DIFF REQ WBC (4.8 - 10.8 /CUMM) 7.5 RBC (4.20 - 5.40 /CUMM) 5.09 Hgb (12.0 - 16.0 G/DL) 15.7 Hct (37 - 47 %) 46.2 MCV (81.0 - 99.0 FL) 90.8 MCH (27.0 - 31.0 PG) 30.8 RDW (11.5 - 14.5 %) 14.0 Plt Count (130 - 400 /CUMM) 188 MPV (7.4 - 10.4 FL) 8.6 Gran % (42.2 - 75.2 %) 82.5 H Monocytes % (1.7 - 9.3 %) 5.0 Eosinophils % (0 - 5 %) 0.3 Basophils % (0.0 - 2.0 %) 0.4 Absolute Granulocytes (1.4 - 6.5 /CUMM) 6.2 Absolute Lymphocytes (1.2 - 3.4 /CUMM) 0.9 L Absolute Monocytes (0.10 - 0.60 /CUMM) 0.4 Absolute Eosinophils (0.0 - 0.7 /CUMM) 0 Absolute Basophils (0.0 - 0.2 /CUMM) 0 PUBS MCHC (33.0 - 37.0 G/DL) 33.9 Toxicology Urine Opiates Screen (>2000 NG/ML) < 100.00 Methadone Screen (>300 NG/ML) < 40 Barbiturate Screen (>200 NG/ML) < 60 Ur Phencyclidine Scrn (>25 NG/ML) < 6.00 Amphetamines Screen (>1000 NG/ML) < 100 U Benzodiazepines Scrn (>200 NG/ML) < 85 Urine Cocaine Screen (>300 NG/ML) < 50 Urine Cannabis Screen (>50 NG/ML) < 5.00 Serum Alcohol (<10 MG/DL) < 10.0 Urines Urinalysis LIGHT H Urine Color (YEL,AMB,STR) YEL Urine Clarity (CLEAR) HAZY H Urine pH (5.0 - 8.0) 6.0 Ur Specific [place] (1.001 - 1.035) >= 1.030 Urine Protein (NEG,<30 MG/DL) 100 H Urine Ketones (NEG) NEG Urine Nitrite (NEG) NEG Urine Bilirubin (NEG) NEG Urine Urobilinogen (0.1 - 1.0 EU/dl) 0.2 Ur Leukocyte Esterase (NEG) NEG Ur Microscopic SEDIMENT EXAMINED Urine RBC (0 - 5 /HPF) 5-10 H Urine WBC (0 - 2 /HPF) 3-5 H Ur Epithelial Cells (NONE,FEW) FEW Granular Casts (NONE /LPF) 5-10 H Urine Hemoglobin (NEG) MOD H Urine Glucose (N MG/DL) NEG Diagnostic Data EKG Results EKG shows sinus tachycardia rate [address] depression. CXR Results PATIENT: MIKEL MEAD PRESENT AGE: 55 PATIENT ACCOUNT NO: [id number] : 59 LOCATION: [facility] ORDERING PHYSICIAN: JAMIL CARROLL MD SERVICE DATE: 03/26/16 EXAM TYPE: RAD - XRY-PORTABLE CHEST XRAY EXAMINATION: XR PORTABLE CHEST CLINICAL INFORMATION: Status post fall. Seizure. COMPARISON: Chest x-rays most recent prior dated 05/31/2015 TECHNIQUE: Portable AP view of the chest was obtained. FINDINGS: Stable cardiomediastinal silhouette. Mild crowding of the bronchovascular structures right infrahilar region. No acute airspace opacity. Postoperative changes lower cervical spine. Visualized bony thorax is intact. IMPRESSION: No acute pulmonary disease. Chronic changes. DICTATED BY: SANFORD SANTOYO MD DATE/TIME DICTATED:03/26/161411 INSURANCE VERIFICATION REPRESENTATIVE:LARISA DATE/TIME TRANSCRIBED:03/26/161411 CONFIDENTIAL, DO NOT COPY WITHOUT APPROPRIATE AUTHORIZATION. <Electronically signed in Other Vendor System> SIGNED BY: SANFORD SANTOYO MD 03/26/161416 Assessment/Plan Assessment/Plan This patient presents with severe hypertension, seizure, possibly alcohol withdrawal related, hypokalemia. She has been drinking heavily recently. She is known hypertensive but has been not taking any medications for many months. She presented with severe hypertension. Her blood pressure is much improved at this time. Her mental status is relatively normal. I recommend continuing her on her current regimen and monitoring her blood pressure carefully. She should be on a CIWA protocol. I recommend the trending the troponin. I recommend an echocardiogram. I recommend trying to get her old records from [facility]. We will keep her on telemetry at least another 24 hours. Consult Acknowledgment - Thank you for your consult request.
--- NOTE | 2016-03-27 16:03 | Admission Certification ---
Admission Certification Certification Statement - As attending physician, I certify that at the time of - admission, based on clinical presentation, severity of - symptoms, need for further diagnostic testing and - therapeutic interventions, and risk of adverse outcomes - without in-hospital treatment, in my clinical assessment, - this patient requires an acute hospital stay for a minimum - of two nights or longer. I have also considered psychsocial - factors such as support system, advanced age, financial - issues, cognitive issues, and failed out-patient treatments, - past re-admission history, safety of patient, and lack of - compliance as applicable. Specific rationale supporting this admission is: Alcohol withdrawal and hypertensive urgency
[2016-03-27 16:27] VITALS: BP 136/80
--- NOTE | 2016-03-27 20:23 | NUR ---
ROYCE PARKS 03/27/16 AT 2020 PER MD ORDER.
[2016-03-27 20:54] VITALS: BP 164/90
[2016-03-27 23:00] VITALS: BP 164/90
[2016-03-28 08:05] LABS: ABSOLUTE BASOPHIL COUNT 0 /CUMM (0.0-0.2); ABSOLUTE EOSINOPHIL COUNT 0.2 /CUMM (0.0-0.7); ABSOLUTE GRANULOCYTE CT 3.3 /CUMM (1.4-6.5); ABSOLUTE LYMPH COUNT 1.5 /CUMM (1.2-3.4); ABSOLUTE MONOCYTE COUNT 0.4 /CUMM (0.10-0.60); BASOPHIL % 0.5 % (0.0-2.0); EOSINOPHIL % 4.5 % (0-5); GRANULOCYTE % 60.2 % (42.2-75.2); HEMATOCRIT 33.4 % (37-47); MEAN CORPUSCULAR HGB 31.5 PG (27.0-31.0); MEAN CORPUSCULAR HGB CONC 34.4 G/DL (33.0-37.0); MEAN CORPUSCULAR VOLUME 91.6 FL (81.0-99.0); MEAN PLATELET VOLUME 9.2 FL (7.4-10.4); PLATELET COUNT 110 /CUMM (130-400); RBC DISTRIBUTION WIDTH 14.3 % (11.5-14.5); RED BLOOD CELL CT 3.65 /CUMM (4.20-5.40); WHITE BLOOD CELL COUNT 5.5 /CUMM (4.8-10.8)
--- NOTE | 2016-03-28 08:50 | PN- Housestaff ---
DIONICIO FRANCIS 03/28/16 0850: Subjective Follow-up For: Hypertensive urgency EtOH dependence/withdrawal Tele-Events Since Last Visit: Sinus rhythm heart rates 100s Subjective: Seen and examined patient. Overnight patient was very combative and had to be put in restraints currently not in restraints however she continues to be agitated and attempting to bite staff. Review of Systems Constitutional: Reports: see HPI. Objective Last 24 Hrs of Vital Signs/I&O Vital Signs Date Time Temp Pulse Resp B/P Pulse O2 O2 Flow FiO2 Ox Delivery Rate 03/28 1248 98.1 91 18 124/78 95 Room Air 03/28 1017 88 144/90 03/28 1016 88 18 144/90 03/27 2300 98.1 90 20 164/90 95 Room Air 03/27 2102 100 164/96 03/27 2054 100 20 164/90 03/27 1627 98.4 93 18 136/80 96 Room Air 03/27 1450 Room Air Intake & Output 03/28 1600 03/28 0800 03/28 0000 Intake Total 1427 620 800 Output Total 550 350 800 Balance 877 270 0 Intake, IV 487 600 600 Intake, Oral 940 20 200 Output, Urine 550 350 800 Physical Exam General Appearance: Alert, Oriented X3, Moderate Distress Cardiovascular: Normal S1, Normal S2 Lungs: Normal Air Movement Assessment/Plan Assessment: This is a 55-year-old woman with a past medical history of stress-induced CA status post cath in 2010, history of non-nodule on CT chest 2014, chronic pain due to cervical stenosis, anxiety presents to the ED with chief complaints of questionable seizure-like activity and was found to be hypertensive to 212 systolic in the setting of having consumed alcohol. Problem list/plan: #Hyperrtensive urgency * Most likely secondary to noncompliance with medications as well as alcohol withdrawal * Blood pressure better controlled 164 by 90s * Continue with labetalol 200 mg twice a day by mouth * Continue with amlodipine 10 mg by mouth daily * Echocardiogram pending * Cardio consult #Alcohol withdrawal: * Patient has required 9 mg of Ativan since this morning continues to score high on CIWA she'll be transferred to the ICU for close monitoring as well as IV Ativan drip * CIWA per protocol with Ativan 2 mg IV every 6 scheduled as well as Ativan per CIWA scores * Banana bag with transition to oral multivitamins * Maintain on seizure precautions * Maintain on aspiration precautions * Psych consult/Social work consult #Hypokalemia and hypomagnesemia * Most likely secondary to alcoholism * Will Replete accordingly #DVT prophylaxis * Heparin 5000 international units 3 times a day subcutaneous #Diet * Cardiac diet #CODE STATUS * Full code Problem List: 1. Hypertensive urgency 2. Alcohol withdrawal seizure Pain Ratin Pain Location: na Pain Goal: Pain 4 or less Pain Plan: current regimen Tomorrow's Labs & Rationales: transferred to ICU Consulting Request: Consulting Specialty: Cardiology WEST GONZALEZ MD 03/28/16 1402: Attending MD Review Statement Attending Statement Attending MD Statement: examined this patient, discuss w/resident/PA/SPECIAL NEEDS BUS DRIVER, agreed w/resident/PA/SPECIAL NEEDS BUS DRIVER, reviewed EMR data (avail) Attending Assessment/Plan: 55F PMH HTN, CAD, chronic pain, chronic EtOH abuse admitted with alcohol withdrawal and hypertensive urgency. Patient agitated overnight requiring several PRN Ativan doses. Today requiring hourly Ativan doses with 28mg given over last 12 hours. Patient is still agitated and aggressive. BP is more controlled. Plan - Transfer to ICU, start Ativan 4mg/hr - Ativan 2mg q1h PRN per CIWA - Aggresively replete Mg and K - Continue IV hydration - Continue home medications - DVT PPx
[2016-03-28 12:48] VITALS: BP 124/78
--- NOTE | 2016-03-28 13:44 | PN- Cardiology ---
Subjective Subjective: Unfortunately this patient has become combative and is actively withdrawing from alcohol. She is on the CIHI protocol but has been moved to the intensive care unit for closer monitoring. Fortunately her blood pressure has been relatively well controlled over the past 12 hours. She is on labetalol and amlodipine. Her potassium has been low and is being repleted. Her troponins are negative. Objective Vital Signs and I&Os Vital Signs Date Time Temp Pulse Resp B/P Pulse O2 O2 Flow FiO2 Ox Delivery Rate 03/28 1248 98.1 91 18 124/78 95 Room Air 03/28 1017 88 144/90 03/28 1016 88 18 144/90 03/27 2300 98.1 90 20 164/90 95 Room Air 03/27 2102 100 164/96 03/27 2054 100 20 164/90 03/27 1627 98.4 93 18 136/80 96 Room Air 03/27 1450 Room Air Intake & Output 03/28 1600 03/28 0800 03/28 0000 03/27 1600 03/27 0800 03/27 0000 Intake Total 528 170 0075 570 350 Output Total 300 350 955 625 2054 250 Balance -300 270 0 840 -530 100 Intake, IV 600 600 600 450 250 Intake, Oral 20 200 840 120 100 Output, Urine 300 350 113 340 0703 250 Patient 130 lb Weight Physical Exam: She is somewhat lethargic but responsive. HEENT exam is normal Chest is clear to limited exam Heart reveals regular rhythm and no murmurs Extremities no edema Current Medications: Current Medications Sig/Kary Start time Last Medication Dose Route Stop Time Status Admin Acetaminophen 650 MG Q6 PRN 03/26 1545 AC PO Amlodipine Besylate 10 MG DAILY 03/26 1625 AC 03/28 PO 1016 Cyanocobalamin 1,000 MCG DAILY 03/27 1704 AC 03/28 PO 1014 Cyanocobalamin/ 1 BAG DAILY 03/26 1536 DC 03/26 Thiamine/Pyridoxine IV 1714 Dextrose/Water 1,000 ML Folic Acid 1 MG DAILY 03/27 1704 AC 03/28 PO 1014 Heparin Sodium 5,000 UNIT Q8 03/26 2200 AC 03/28 (Porcine) SC 0609 Labetalol HCl 200 MG BID 03/26 1930 AC 03/28 PO 1017 Lorazepam 50 MG Q24H 03/28 1345 AC Dextrose/Water 500 ML IV Lorazepam 2 MG Q4 03/27 2200 CAN PO Lorazepam 2 MG Q4 03/27 2200 DC 03/28 IV 1019 Lorazepam 2 MG Q6 03/27 1800 DC 03/27 PO 1830 Lorazepam 0 Q1P PRN 03/26 1545 AC 03/28 IV 1238 Magnesium Sulfate 1 GM ONCE ONE 03/27 1245 DC 03/27 Dextrose/Water 100 ML IV 03/27 1644 1659 Multivitamins 1 TAB DAILY 03/27 1704 AC 03/28 PO 1014 Nicotine 14 MG DAILY 03/27 2040 AC 03/28 TOP 1017 Oxycodone/ 1 TAB Q4P PRN 03/26 1900 AC 03/27 Acetaminophen PO 2044 Potassium Chloride 60 MEQ ONCE ONE 03/28 1100 DC 03/28 PO 03/28 1101 1100 Potassium Chloride 20 MEQ ONCE ONE 03/27 1999 DC 03/27 PO 03/27 2000 223 Potassium Chloride 60 MEQ ONCE ONE 03/27 1645 DC 03/27 PO 03/27 1646 1708 Thiamine HCl 50 MG DAILY 03/27 2001 AC 03/28 PO 1014 Results Last 48 Hrs of Labs/Mics: Laboratory Tests 03/28/16 0620: Anion Gap 6, Estimated GFR > 60, BUN/Creatinine Ratio 10.0, Magnesium 1.9, CBC w Diff NO MAN DIFF REQ, RBC 3.65 L, MCV 91.6, MCH 31.5 H, RDW 14.3, MPV 9.2, Gran % 60.2, Lymphocytes % 27.7, Monocytes % 7.1, Eosinophils % 4.5, Basophils % 0.5, Absolute Granulocytes 3.3, Absolute Lymphocytes 1.5, Absolute Monocytes 0.4 , Absolute Eosinophils 0.2, Absolute Basophils 0, PUBS MCHC 34.4 03/27/16 1450: Anion Gap 8, Estimated GFR > 60, BUN/Creatinine Ratio 6.7 L, Magnesium 1.6, Troponin I < 0.01 03/27/16 0640: Anion Gap 9, Estimated GFR > 60, BUN/Creatinine Ratio 6.3 L, Magnesium 1.5 L, Troponin I 0.02, CBC w Diff NO MAN DIFF REQ, RBC 4.00 L, MCV 91.1, MCH 31.5 H, RDW 14.0, MPV 9.5, Gran % 66.0, Lymphocytes % 25.4, Monocytes % 5.9, Eosinophils % 2.3, Basophils % 0.4, Absolute Granulocytes 5.4, Absolute Lymphocytes 2.1, Absolute Monocytes 0.5, Absolute Eosinophils 0.2, Absolute Basophils 0, PUBS MCHC 34.5 03/26/16 2125: Lactic Acid 2.0 03/26/16 1737: Anion Gap 14, Estimated GFR > 60, BUN/Creatinine Ratio 8.6, Lactic Acid 4.4 H, Magnesium 1.8 03/26/16 1350: Urine Opiates Screen < 100.00, Methadone Screen < 40, Barbiturate Screen < 60, Ur Phencyclidine Scrn < 6.00, Amphetamines Screen < 100, U Benzodiazepines Scrn < 85, Urine Cocaine Screen < 50, Urine Cannabis Screen < 5.00, Urinalysis LIGHT H, Urine Color YEL, Urine Clarity HAZY H, Urine pH 6.0, Ur Specific [place] >= 1.030, Urine Protein 100 H, Urine Ketones NEG, Urine Nitrite NEG, Urine Bilirubin NEG, Urine Urobilinogen 0.2, Ur Leukocyte Esterase NEG, Ur Microscopic SEDIMENT EXAMINED, Urine RBC 5-10 H, Urine WBC 3-5 H, Ur Epithelial Cells FEW, Granular Casts 5-10 H, Urine Hemoglobin MOD H, Urine Glucose NEG Microbiology 03/26 1809 NASOPHARYN: Influenza Virus A & B Rapid Smear - COMP 03/26 1349 URINE ROUT: Urine Culture - COMP Assessment/Plan Assessment/Plan The patient's blood pressure is better controlled. However she is actively withdrawing from alcohol and is on an intensive CIWA protocol in the ICU. We will continue to monitor her blood pressures. As long as she is able to take by mouth I would continue her on the same antihypertensive medication. Continue telemetry? Not applicable
--- NOTE | 2016-03-28 14:28 | NUR ---
@1330-PT ARRIVED TO [facility] FROM [facility] FOR ETOH WITHDRAWEL. UPON ARRIVAL PT COOP, FORGETFUL. AGITATED AT TIMES. TO START ON ATIVAN GTT AT 2MG/HR, AWAITING ARRIVAL FROM PHARMACY AT THIS TIME. 1:1 SITTER AT BEDSIDE. NOTED TO BE ON RA, LUNGS CLEAR. DENIES SOB. NSR, ST HR 90S. BP STABLE. INC OF URINE. SKIN INTACT. IVF NS INFUSING AT 75ML/HR. HOUSESTAFF AT BEDSIDE FOR ASSESS. @1400-PT STARTED TO BECOME COMBATIVE TOWARDS OTHER ICU STAFF-ORDER #7 CALLED. THIS RN ABLE TO CALM PT. NO NEED FOR RESTRAINTS AT THIS TIME. 2ND IV SITE STARTED AND ATIVAN GTT STARTED AT 2MG/HR. PSYCH AT BEDSIDE FOR EVAL AT THIS TIME. CONT TO MONITOR CLOSELY. CALL SIMONE WITHIIN REACH.
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
--- NOTE | 2016-03-28 15:49 | NUR ---
EVENT NOTE: APPROXIMATELY 13:00 PM PT BECAME INCREASINGLY AGITATED AFTER RECEIVING ATIVAN PER CIWA. CLIMBING OOB, UNABLE TO FOLLOW INSTRUCTIONS, COMBATIVE WITH STAFF & ATTEMPTED TO BITE MST. VSS. DR FRANCIS AT BEDSIDE TO EVALUATE. MORE ATIVAN GIVEN PER EMAR. PT EXTREMELY ANXIOUS & AGITATED AT THIS TIME. TRANSFER TO ICU PER MD ORDER.
[2016-03-28 16:00] VITALS: BP 122/80
--- NOTE | 2016-03-28 17:06 | NUR ---
@1600-PT NOTED TO BECOME INCREASINGLY AGITATED, PARNOID, HALLUCINATING. SECURITY AT BEDSIDE. SITTER AT BEDSIDE. ATIVAN GTT INCREASED TO 4MG, SEE DOCUMENTATION ON FLOWHSSET. ATIVAN BOLUS PER CIWA. MEDICATED WITH IM HALDOL ORD. PT HAD LARGE BM ON BEDPAN. TO RECIEVE IV THIAMINE WHEN ARRIVES FROM PHARMACY. IVF CONT AT 75ML/HR @1700-PT CONT TO BECOME INCREASINGLY AGITATED, ABLE TO CALM AT TIMES. ATIVAN GTT INCREASED TO 5MG/HR.
--- NOTE | 2016-03-28 18:36 | NUR ---
@1800-PT RESTING CALMLY IN BED. SITTER REMAINS AT BEDSIDE. PT CONT TO HAVE INTERMITTENT EPISODES OF IMPULSIVENESS AND AGITATITON. IV ATIVAN GTT CONT TO INFUSE AT 5MG/HR. IV THIAMINE INFUSING AT THIS TIME ORD. SHIMON PO DIET. CONT TO MONITOR CLOSELY.
[2016-03-28 20:00] VITALS: BP 120/80
[2016-03-28 21:49] VITALS: BP 107/61
--- NOTE | 2016-03-28 21:55 | NUR ---
PT SLEEPING EASILY AWAKENED CONFUSED X 3 SITTER AT BEDSIDE TO MAINTAIN SAFETY
[2016-03-29] VITALS (11 sets, daily range): BP systolic 99–158; BP diastolic 50–100
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
--- NOTE | 2016-03-29 09:52 | PN- Cardiology ---
Subjective Subjective: tHE Patient was quite agitated yesterday and required an order #7. However she has been better sedated and is more calm this morning. Her blood pressure has been good in the low to mid 100s. She is currently about 125. Her EKG this morning shows some nonspecific T-wave changes. Labs are improved with potassium now in the normal range, magnesium is slightly low and is being repleted. Objective Vital Signs and I&Os Vital Signs Date Time Temp Pulse Resp B/P Pulse O2 O2 Flow FiO2 Ox Delivery Rate 03/29 0900 84 126/84 03/29 0900 78 126/84 03/29 0600 99.1 73 16 99/50 03/29 0400 99.1 81 16 107/63 03/29 0200 98.0 72 18 118/64 03/29 0000 98.0 80 18 118/67 03/29 0000 98.0 80 18 118/67 94 Room Air 03/28 2149 98.1 81 16 107/61 03/28 2125 77 107/61 03/28 2000 98.1 86 18 120/80 03/28 1600 99.0 90 22 122/80 97 Room Air 03/28 1248 98.1 91 18 124/78 95 Room Air 03/28 1017 88 144/90 03/28 1016 88 18 144/90 Intake & Output 03/29 1600 03/29 0800 03/29 0000 03/28 1600 03/28 0800 03/28 0000 Intake Total 200 1190 1762 620 800 Output Total 700 500 550 350 800 Balance -612 566 7948 270 0 Intake, IV 990 582 600 600 Intake, Oral 452 744 0505 20 200 Number 1 1 0 Bowel Movements Output, Urine 700 500 550 350 800 Physical Exam: She is lethargic but responsive and appropriate HEENT exam is normal Chest is clear Heart reveals no murmurs Extremities no edema Current Medications: Current Medications Sig/Kary Start time Last Medication Dose Route Stop Time Status Admin Acetaminophen 650 MG Q6 PRN 03/26 1545 AC 03/29 PO 2250 Amlodipine Besylate 10 MG DAILY 03/26 1625 AC 03/30 PO 0858 Cyanocobalamin 1,000 MCG DAILY 03/27 1704 AC 03/30 PO 0858 Folic Acid 1 MG DAILY 03/27 1704 AC 03/30 PO 0857 Haloperidol 1 MG Q2P PRN 03/29 1245 AC IM Haloperidol 1 MG Q4P PRN 03/28 1630 DC 03/28 IM 1630 Heparin Sodium 5,000 UNIT Q8 03/26 2200 AC 03/30 (Porcine) SC 0608 Labetalol HCl 200 MG BID 03/26 1930 AC 03/30 PO 0858 Lorazepam 0.5 MG ONCE 04/03 0000 AC PO 04/03 0001 Lorazepam 0.5 MG ONCE ONE 04/01 1800 AC PO 04/01 1801 Lorazepam 1.5 MG Q12H 03/31 0600 AC PO 03/31 1801 Lorazepam 1.5 MG Q6 03/30 0600 AC 03/30 PO 03/30 1801 0607 Lorazepam 2 MG Q6 03/29 1800 DC 03/29 PO 03/30 0001 2341 Lorazepam 2 MG ONCE ONE 03/29 1330 DC 03/29 PO 03/29 1331 1411 Lorazepam 2 MG Q6 03/29 1200 DC PO Lorazepam 50 MG Q10H 03/29 1000 DC 03/29 Dextrose/Water 500 ML IV 1116 Lorazepam 0 Q1P PRN 03/28 1645 AC 03/30 IV 0200 Magnesium Oxide 400 MG BID 03/30 1000 AC 03/30 PO 04/02 2201 0857 Magnesium Oxide 400 MG ONE ONE 03/29 1999 DC 03/29 PO 03/29 Magnesium Oxide 400 MG DAILY 03/28 1645 DC 03/29 PO 0859 Magnesium Sulfate 1 GM ONCE ONE 03/29 0830 DC 03/29 N/A 1 UNIT IV 03/29 1029 0945 Multivitamins 1 TAB DAILY 03/27 1704 AC 03/30 PO 0858 Nicotine 14 MG DAILY 03/27 2040 AC 03/30 TOP 0857 Olanzapine 2.5 MG Q4P PRN 03/28 1645 AC PO Oxycodone/ 1 TAB Q4P PRN 03/26 1900 AC 03/30 Acetaminophen PO 0808 Thiamine HCl 100 MG DAILY 03/30 1000 AC 03/30 PO 0858 Thiamine HCl 500 MG TID 03/29 1600 CAN Sodium Chloride 100 ML IV 03/31 1102 Thiamine HCl 500 MG TID 03/28 1600 DC 03/29 Sodium Chloride 100 ML IV 03/30 1102 1110 Thiamine HCl 50 MG DAILY 03/27 2002 DC 03/29 PO 0900 Results Last 48 Hrs of Labs/Mics: Laboratory Tests 03/30/16 0450: Anion Gap 8, Estimated GFR > 60, Glucose 101 H, Calcium 8.9, Phosphorus 5.4 H, Magnesium 1.7, Total Bilirubin 0.4, AST 40 H, ALT 33, Albumin 3.2 L, CBC w Diff NO MAN DIFF REQ, RBC 3.53 L, MCV 92.2, MCH 31.6 H, RDW 14.5, MPV 9.1, Gran % 63.5, Lymphocytes % 24.8, Monocytes % 5.6, Eosinophils % 5.7 H, Basophils % 0.4, Absolute Granulocytes 4.3, Absolute Lymphocytes 1.7, Absolute Monocytes 0.4, Absolute Eosinophils 0.4, Absolute Basophils 0, PUBS MCHC 34.3 03/29/16 1808: Magnesium 1.8 03/29/16 0420: Anion Gap 6, Estimated GFR > 60, Glucose 107 H, Calcium 8.5, Phosphorus 3.7, Magnesium 1.5 L, Total Bilirubin 0.4, AST 26, ALT 30, Albumin 2.9 L Microbiology 03/28 1330 UPPER RESP: Surveillance Culture - COMP 03/28 1329 GI: Surveillance Culture - COMP Assessment/Plan Assessment/Plan The patient has developed acute alcohol withdrawal syndrome. However her blood pressure is improved. She is less agitated today. I recommend continuing her on her current antihypertensive regimen. We may have to adjust this once she settles down, but she will most likely need some antihypertensive therapy. Continue telemetry? Not applicable
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
--- NOTE | 2016-03-29 10:44 | NUR ---
A&OX3, FOLLOWING COMMANDS, COOPERATIVE, SLIGHT CONFUSION AT TIMES EASILY REDIRECTED, C/O VISUAL DISTURBANCE SEEING RAINBOW SPOTS,1:1 SITTER AT BEDSIDE ATIVAN GTT MAINTAINED AT 5MG/HR (TITRATED TO 4MG/HR AT 1000) CRYING WHENEVER CALLS ON THE PHONE, EXTREMELY ANXIOUS WHEN ARRIVED TO HER ROOM; NSR 70'S, BP 122/80, DENIES CP, NS MAINTAIN AT 75MLS/HR, MAG 1.5, 2GM TOTAL IV/ 400 PO GIVEN, RA 99% CLEAR NO SOB, ABD SOFT, POSITIVE B.S. TOLERATING PO, SKIN INTACT, LEFT FOOT SWOLLEN, RED, PAIN
--- NOTE | 2016-03-29 11:28 | PN- Psychiatry ---
Assessment/Plan Impression: The patient is reporting symptoms consistent with alcoholic hallucinosis, but is not currently experiencing delirium tremens. She has a history of seizures, so caution is suggested in down-titration of benzodiazepines/lorazepam. Lorazepam drip currently running at 4 mg /hour, and is being titrated in order to begin PO lorazepam taper. EKG 03/29/16 0438 shows SR, 79 BPM, QTc 464 mS. Potassium today is 4.1, however, magnesium is low at 1.5. The patient would benefit from antipsychotic therapy to help with her visual hallucinations. EKG shows QTc is within acceptable limits, less than 475 mS. Potassium is also acceptable at 4.1, but magnesium needs to be repleted and rechecked to make sure it is above 2.[address] an AP. Dr. Rodriguez had suggested olanzapine 2.5-5 mg PO every 4 hours PRN for agitation. Please reserve Haldol IM for dangerous or severe agitation. Please advise if the patient decompensates toward DTs. SW is following. Nursing reports that the patient's spouse was here earlier, believing that the patient was due to discharge today. Suggestion: 1. Continue alcohol detox protocol, and change to 'ETOH Detox' order set as the patient transitions from IV Ativan to PO. a. Daily thiamine 100 mg, folate, MVI. The patient is s/p high dose thiamine. 2. Haldol 1 mg IM every 1-2 hours PRN for dangerous or severe agitation a. Hold for QTc prolongation greater than 475 mS and hold for potassium less than 4.0 or magnesium less than 2.0, unless benefits outweigh risks of inducing torsade de pointes. 3. Olanzapine 2.5 mg PO every 4 hours PRN for agitation, hallucinosis, disorganized thinking. a. Hold for QTc prolongation greater than 475 mS; hold for potassium less than 4.0 or magnesium less than 2.0. Torsade de pointes has been associated with hypomagnesemia. We will continue to follow along with you. Brittany De La Fuente APRN, Pager [phone] Subjective Subjective: Patient seen today, 03/29/16, at 1045, in ICU room 106. She is lying calmly on her side, in no apparent distress. She is oriented to her name, off by one day, and does not answer the question about place. She denies SI/HI, but states, "I cannot drive the car," and explains that she is seeing "spots," visual hallucinations. She denies auditory and tactile hallucinations. She reports she feels safe in the hospital. Objective Last 24 Hrs of Vital Signs/I&O Vital Signs Date Time Temp Pulse Resp B/P Pulse O2 O2 Flow FiO2 Ox Delivery Rate 03/29 0900 84 126/84 03/29 0900 78 126/84 03/29 0600 99.1 73 16 99/50 03/29 0400 99.1 81 16 107/63 03/29 0200 98.0 72 18 118/64 03/29 0000 98.0 80 18 118/67 03/29 0000 98.0 80 18 118/67 94 Room Air 03/28 2149 98.1 81 16 107/61 03/28 2125 77 107/61 03/28 2000 98.1 86 18 120/80 03/28 1600 99.0 90 22 122/80 97 Room Air 03/28 1248 98.1 91 18 124/78 95 Room Air Intake & Output 03/29 1600 03/29 0800 03/29 0000 Intake Total 200 1190 Output Total 700 500 Balance -500 690 Intake, IV 990 Intake, Oral 200 200 Number 1 1 Bowel Movements Output, Urine 700 500 Patient 130 lb Weight
--- NOTE | 2016-03-29 14:31 | NUR ---
Referral received this am via electronic service order dispatcher chief. This patient is a 55 year old woman, admitted to the hospital on 03/26/16 with hypertensive urgency in the setting of alcohol abuse disorder. Currently on an ativan drip and has been experiencing significant withdrawal symptoms. Still with 1:1sitter. unable to assess interest/motivation in aftercare at this time, but will follow. Case discussed with Dr. Mora this am. Primary concern was safety of 12 year old son, Lobito. Patient reports that her son is with her sister at their home. Call placed to home. Sister May confirms 12 year old i sthere and is well.. Will follow to better assess aftercare needs.
--- NOTE | 2016-03-29 16:58 | CT SCAN REPORT ---
EXAMINATION: CT LOWER EXTREMITY WITHOUT CONTRAST, LEFT CLINICAL INFORMATION: Left foot pain. COMPARISON: Radiographs 03/26/2016. TECHNIQUE: A noncontrast CT of the left foot was performed with sagittal and coronal reformats. DLP: 353 mGy-cm FINDINGS: There is a nondisplaced fracture at the plantar/medial aspect of the medial cuneiform and base of 1st metatarsal at the 1st TMT joint. Mild degenerative spurring at the dorsal aspect of the 1st TMT joint. There is a slightly displaced fracture fragment at the dorsal/lateral aspect of the medial cuneiform. Several small fracture fragments are present at the junction of the medial cuneiform and the base of the 2nd metatarsal compatible with avulsion by the Lisfranc ligament, with fragments primarily from the medial cuneiform. There is a small fracture fragment at the dorsal/lateral aspect of the middle cuneiform. No significant subluxation. There is an oblique, minimally displaced fracture at the plantar aspect of the 3rd metatarsal base, extending into the TMT joint. There is also a cortical fracture along the plantar aspect of the proximal 4th metatarsal medially, which does not clearly extend into the TMT joint. Moderate 1st MTP joint osteoarthritis with hallux rigidus. Degenerative changes are present at the tibiotalar joint with medial osteophytes. No acute ankle fracture. IMPRESSION: Several fractures across the Lisfranc joints with minimal displacement as detailed in the comments. Several fracture fragments are present along the course of the Lisfranc ligament between the medial cuneiform and 2nd metatarsal base. No significant subluxation.
--- NOTE | 2016-03-29 18:40 | NUR ---
PT AWAKE AND GETTING MORE CONFUSED,AA 1-1 SITTER AT BEDSIDE.2 IV HL TO LT ARM INTACT, AUTO CUFF OFF FOR NOW TO CT FOR SCAN OF LT FOOT SWOLLEN AND RED VIA STRETCHER. DINNER AT BEDSIDE AND EVENTUALLY PUSHED TRAY TO FLOOR AND THEN APPOLOGIZED. WANTING TO LEAVE WORRIED ABOUT SON. I SPOKE TO VIDEO PRODUCTION ENGINEER WHO TALKED WITH PT AND WAS TO CALL FAMILY ALSO. LAB WORK DRAWN AND SENT. MEDS ORDERED AND PT NOW SLEEPING. MONITOR SR VS STABLE.IVF 75ML/HR.
[2016-03-30] VITALS (8 sets, daily range): BP systolic 128–160; BP diastolic 61–92
[2016-03-30 05:25] LABS: ABSOLUTE BASOPHIL COUNT 0 /CUMM (0.0-0.2); ABSOLUTE EOSINOPHIL COUNT 0.4 /CUMM (0.0-0.7); ABSOLUTE GRANULOCYTE CT 4.3 /CUMM (1.4-6.5); ABSOLUTE LYMPH COUNT 1.7 /CUMM (1.2-3.4); ABSOLUTE MONOCYTE COUNT 0.4 /CUMM (0.10-0.60); BASOPHIL % 0.4 % (0.0-2.0); EOSINOPHIL % 5.7 % (0-5); GRANULOCYTE % 63.5 % (42.2-75.2); HEMATOCRIT 32.5 % (37-47); MEAN CORPUSCULAR HGB 31.6 PG (27.0-31.0); MEAN CORPUSCULAR HGB CONC 34.3 G/DL (33.0-37.0); MEAN CORPUSCULAR VOLUME 92.2 FL (81.0-99.0); MEAN PLATELET VOLUME 9.1 FL (7.4-10.4); PLATELET COUNT 123 /CUMM (130-400); RBC DISTRIBUTION WIDTH 14.5 % (11.5-14.5); RED BLOOD CELL CT 3.53 /CUMM (4.20-5.40); WHITE BLOOD CELL COUNT 6.8 /CUMM (4.8-10.8)
--- NOTE | 2016-03-30 07:07 | PN- Resident CRCU ---
See Addendum Subjective HPI/CRCU Issues: Patient in ICU for requirement of Ativan drip for alcohol detoxification. Drip was stopped yesterday. Hypertensive urgency has already been managed on the medicine floor. 24 Hour Events: Abdomen drip stopped yesterday. Objective Vital Signs & I&O Last 8 Hrs of Vitals and I&O: Vital Signs Date Time Temp Pulse Resp B/P Pulse O2 O2 Flow FiO2 Ox Delivery Rate 03/30 0858 85 160/90 03/30 0858 84 160/90 03/30 0800 97.8 87 23 160/90 95 Room Air 03/30 0600 78 21 140/75 03/30 0400 96.8 77 19 130/82 03/30 0400 93 Room Air 03/30 0300 96.8 75 14 131/71 03/30 0200 98.0 80 24 131/61 Exam General Appearance: well developed/nourished, no apparent distress, alert, awake , anxious Other Physical Findings: Head: atraumatic, normal appearance Ears, Nose, Throat: normal pharynx Neck: normal inspection, supple, full range of motion Respiratory: normal breath sounds, chest non-tender, no respiratory distress Cardiovascular: regular rate/rhythm Gastrointestinal: normal bowel sounds, soft, non-tender Extremities: normal inspection, normal capillary refill, normal range of motion, no edema; but marked tenderness over left heel, ankle Cranial Nerves: grossly intact Skin: intact, normal color, warm/dry Psychiatric: Anxious, cooperative, coherent, no SI, no HI Nutrition Nutrition: P.O. diet Current Medications: Current Medications Sig/Kary Start time Last Medication Dose Route Stop Time Status Admin Acetaminophen 650 MG Q6 PRN 03/26 1545 AC 03/29 PO 2250 Amlodipine Besylate 10 MG DAILY 03/26 1625 AC 03/30 PO 0858 Cyanocobalamin 1,000 MCG DAILY 03/27 1704 AC 03/30 PO 0858 Folic Acid 1 MG DAILY 03/27 1704 AC 03/30 PO 0857 Haloperidol 1 MG Q2P PRN 03/29 1245 AC IM Haloperidol 1 MG Q4P PRN 03/28 1630 DC 03/28 IM 1630 Heparin Sodium 5,000 UNIT Q8 03/26 2200 AC 03/30 (Porcine) SC 0608 Labetalol HCl 200 MG BID 03/26 1930 AC 03/30 PO 0858 Lorazepam 0.5 MG ONCE 04/03 0000 AC PO 04/03 0001 Lorazepam 0.5 MG ONCE ONE 04/01 1800 AC PO 04/01 1801 Lorazepam 1.5 MG Q12H 03/31 0600 AC PO 03/31 1801 Lorazepam 1.5 MG Q6 03/30 0600 AC 03/30 PO 03/30 1801 0607 Lorazepam 2 MG Q6 03/29 1800 DC 03/29 PO 03/30 0001 2341 Lorazepam 2 MG ONCE ONE 03/29 1330 DC 03/29 PO 03/29 1331 1411 Lorazepam 2 MG Q6 03/29 1200 DC PO Lorazepam 50 MG Q10H 03/29 1000 DC 03/29 Dextrose/Water 500 ML IV 1116 Lorazepam 0 Q1P PRN 03/28 1645 AC 03/30 IV 0200 Magnesium Oxide 400 MG BID 03/30 1000 AC 03/30 PO 04/02 2201 0857 Magnesium Oxide 400 MG ONE ONE 03/29 2000 DC 03/29 PO 03/29 Magnesium Oxide 400 MG DAILY 03/28 1645 DC 03/29 PO 0859 Magnesium Sulfate 1 GM ONCE ONE 03/29 0830 DC 03/29 N/A 1 UNIT IV 03/29 1029 0945 Multivitamins 1 TAB DAILY 03/27 1704 AC 03/30 PO 0858 Nicotine 14 MG DAILY 03/27 2040 AC 03/30 TOP 0857 Olanzapine 2.5 MG Q4P PRN 03/28 1645 AC PO Oxycodone/ 1 TAB Q4P PRN 03/26 1900 AC 03/30 Acetaminophen PO 0808 Thiamine HCl 100 MG DAILY 03/30 1000 AC 03/30 PO 0858 Thiamine HCl 500 MG TID 03/29 1600 CAN Sodium Chloride 100 ML IV 03/31 1102 Thiamine HCl 500 MG TID 03/28 1600 DC 03/29 Sodium Chloride 100 ML IV 03/30 1102 1110 Thiamine HCl 50 MG DAILY 03/27 2002 DC 03/[address] Scan Findings: CT LEFT LOWER EXT: IMPRESSION: Several fractures across the Lisfranc joints with minimal displacement as detailed in the comments. Several fracture fragments are present along the course of the Lisfranc ligament between the medial cuneiform and 2nd metatarsal base. No significant subluxation. DICTATED BY: NAVIN SANCHES MD DATE/TIME DICTATED:03/29/161621 MOUNTAIN [employer] GUIDE:LARISA DATE/TIME TRANSCRIBED:03/29/161621 Impression/Plan Impression/Problem List Impression: This is a 55-year-old woman with a past medical history of stress-induced WA status post cath in 2010, history of non-nodule on CT chest 2014, chronic pain due to cervical stenosis, anxiety presents to the ED with chief complaints of questionable seizure-like activity and was found to be hypertensive to 212 systolic in the setting of having consumed alcohol. Hypertensive urgency was resolved while the patient was tolerating a general medical floor, but her CIWA scores remained high with high requirements of lorazepam, so see was transferred to the ICU yesterday. She is currently being evaluated and managed in the ICU for following issues: #Alcohol withdrawal Patient received 10mg of Ativan on 03/28/2016 due to her ongoing high CIWA scores. Patient continued to have high CIWA scores, thus was transferred to the ICU. Ativan drip was stopped yesterday and she is currently on PO lorazepam since yesterday. -CIWA today max 10, but improving -Plan to taper it per CIWA protocol -Psychiatry consult appreciated -Home medications are already on board except for citalopram, about which, psychiatry service has suggested we started only after she is out of the ICU. #Left left foot pain Recent complaint of left foot pain, which has been chronic, and also mentioned yesterday that she had some kind of traumatic experience on her leg when her "stomped" on it a few years ago. Me and nurse Yumiko specifically asked if herhusband her son or if she feels that her living condition is not safe, to which she denied. Physical examination is ambiguous, tenderness not elicited every time when pressed upon her left leg. CT of left foot and leg shows Lisfranc fracture/dislocation of left foot. #Hypertensive urgency, now resolved Blood pressure as much control right now, thus continuing with the current regimen. Echocardiogram yesterday showed EF>65% and LVH, stage 1 diastolic dysfunction. -Cardiology consult appreciated -Her BP was elevated today so her home med Trimeterene-HCTZ was restarted after which her BP normalized. Of note, she has three meds (two of which are her home meds, and labetalol is new). She is planned to be discharged on these meds after her BP stabilizes. #Electrolyte disturbance -Hypokalemia and hypomagnesemia has already been corrected #DVT prophylaxis: Heparin subcutaneous #Diet: Heart healthy diet #CODE STATUS: Full code Problem List: 1. Alcohol dependence 2. Alcohol withdrawal 3. Hypertensive emergency 4. Lisfranc fracture 5. Lisfranc dislocation Pain Ratin Pain Location: left foot right hip occassionally Pain Goal: Pain 4 or less Pain Plan: percocet and prn plan in place Tomorrow's Labs & Rationales: CBC, BEP to follow for dyselectrolytemia and platelets Plan DVT/Prophylaxis: mechanical, pharmacological
--- NOTE | 2016-03-30 08:24 | NUR ---
@0800-PT ALERT AND ORIENTED. COOP. LONG. 1:1 SITTER REMAINS AT BEDSIDE DUE TO PT HASVING PERIODS OF FORGETFULFULNESS, BECOMING IMPULSIVE AND ATTEMPTING TO LEAVE HOSPITAL. PT REMAINS OFF ATIVAN GTT AND CONT ON PO ATIVAN TAPER 1.5MG PO. PT MEDCIATED FOR PAIN TO L FOOT-PERCOCET 1 TAB AT THIS TIME. CONT ON RA. O2SAT 96%. LUNGS CLEAR. DENIES SOB. NSR HR 80S. BP 160/90-TO RECIEVE PO LABETABLOL AND NORVASC THIS AM. ABD SOFT, +BS. GOOD APPETITE NOTED FOR HH DIET. OOB ASSIST X 1. L FOOT NOTED TO BE SWOLLEN. AWAITING DR BAPTISTE CONSULT THIS AM. MAG 1.7-MAG PO SUPP INCREASED TO BID PER HOUSESTAFF. CONT TO MONITOR CLOSELY. CALL NICHOLS WITHIN REACH. ? DOWNGRADE TODAY.
--- NOTE | 2016-03-30 11:01 | PN- Cardiology ---
Subjective Subjective: The patient is resting quietly. She has been downgraded to general med. Her blood pressure remains a little bit elevated. She is now on labetalol and amlodipine. Objective Vital Signs and I&Os Vital Signs Date Time Temp Pulse Resp B/P Pulse O2 O2 Flow FiO2 Ox Delivery Rate 03/30 0858 85 160/90 03/30 0858 84 160/90 03/30 0800 97.8 87 23 160/90 95 Room Air 03/30 0600 78 21 140/75 03/30 0400 96.8 77 19 130/82 03/30 0400 93 Room Air 03/30 0300 96.8 75 14 131/71 03/30 0200 98.0 80 24 131/61 03/30 0000 98.3 82 17 148/92 03/30 0000 94 Room Air 03/30 0000 98.3 82 17 148/92 94 Room Air 03/29 2200 98.0 90 18 154/98 03/29 2144 90 20 154/98 03/29 1999 98.3 87 18 158/100 03/29 2000 98 Room Air 03/29 1651 88 30 141/74 03/29 1651 97.9 84 22 122/80 97 Room Air 03/29 1400 84 24 118/70 03/29 1200 98.3 77 24 112/60 03/29 1200 96 Room Air Intake & Output 03/30 1600 03/30 0800 03/30 0000 03/29 1600 03/29 0800 03/29 0000 Intake Total 320 1300 4790 198 0513 Output Total 350 1150 700 500 Balance 320 950 405 -500 690 Intake, IV 0 600 895 990 Intake, Oral 320 700 660 200 200 Number 0 0 0 1 1 Bowel Movements Output, Urine 350 1150 700 500 Patient 130 lb Weight Physical Exam: She is sleeping and a full physical was not done Current Medications: Current Medications Sig/Kary Start time Last Medication Dose Route Stop Time Status Admin Acetaminophen 650 MG Q6 PRN 03/26 1545 AC 03/29 PO 2250 Amlodipine Besylate 10 MG DAILY 03/26 1625 AC 03/30 PO 0858 Cyanocobalamin 1,000 MCG DAILY 03/27 1704 AC 03/30 PO 0858 Folic Acid 1 MG DAILY 03/27 1704 AC 03/30 PO 0857 Haloperidol 1 MG Q2P PRN 03/29 1245 AC IM Haloperidol 1 MG Q4P PRN 03/28 1630 DC 03/28 IM 1630 Heparin Sodium 5,000 UNIT Q8 03/26 2200 AC 03/30 (Porcine) SC 0608 Hydrochlorothiazide 25 MG DAILY 03/30 1033 DC PO Labetalol HCl 200 MG BID 03/26 1930 AC 03/30 PO 0858 Lorazepam 0.5 MG ONCE 04/03 0000 AC PO 04/03 0001 Lorazepam 0.5 MG ONCE ONE 04/01 1800 AC PO 04/01 1801 Lorazepam 1.5 MG Q12H 03/31 0600 AC PO 03/31 1801 Lorazepam 1.5 MG Q6 03/30 0600 AC 03/30 PO 03/30 1801 0607 Lorazepam 2 MG Q6 03/29 1800 DC 03/29 PO 03/30 0001 2341 Lorazepam 2 MG ONCE ONE 03/29 1330 DC 03/29 PO 03/29 1331 1411 Lorazepam 2 MG Q6 03/29 1200 DC PO Lorazepam 50 MG Q10H 03/29 1000 DC 03/29 Dextrose/Water 500 ML IV 1116 Lorazepam 0 Q1P PRN 03/28 1645 AC 03/30 IV 0200 Magnesium Oxide 400 MG BID 03/30 1000 AC 03/30 PO 04/02 2201 0857 Magnesium Oxide 400 MG ONE ONE 03/29 2000 DC 03/29 PO 03/29 Magnesium Oxide 400 MG DAILY 03/28 1645 DC 03/29 PO 0859 Multivitamins 1 TAB DAILY 03/27 1704 AC 03/30 PO 0858 Nicotine 14 MG DAILY 03/27 2040 AC 03/30 TOP 0857 Olanzapine 2.5 MG Q4P PRN 03/28 1645 AC PO Oxycodone/ 2 TAB Q6-PRN PRN 03/30 1100 AC Acetaminophen PO Oxycodone/ 1 TAB Q4P PRN 03/26 1900 AC 03/30 Acetaminophen PO 0808 Thiamine HCl 100 MG DAILY 03/30 1000 AC 03/30 PO 0858 Thiamine HCl 500 MG TID 03/29 1600 CAN Sodium Chloride 100 ML IV 03/31 1102 Thiamine HCl 500 MG TID 03/28 1600 DC 03/29 Sodium Chloride 100 ML IV 03/30 1102 1110 Thiamine HCl 50 MG DAILY 03/27 2002 DC 03/29 PO 0900 Triamterene/HCTZ 1 CAP DAILY 03/30 1038 AC PO Results Last 48 Hrs of Labs/Mics: Laboratory Tests 03/30/16 0450: Anion Gap 8, Estimated GFR > 60, Glucose 101 H, Calcium 8.9, Phosphorus 5.4 H, Magnesium 1.7, Total Bilirubin 0.4, AST 40 H, ALT 33, Albumin 3.2 L, CBC w Diff NO MAN DIFF REQ, RBC 3.53 L, MCV 92.2, MCH 31.6 H, RDW 14.5, MPV 9.1, Gran % 63.5, Lymphocytes % 24.8, Monocytes % 5.6, Eosinophils % 5.7 H, Basophils % 0.4, Absolute Granulocytes 4.3, Absolute Lymphocytes 1.7, Absolute Monocytes 0.4, Absolute Eosinophils 0.4, Absolute Basophils 0, PUBS MCHC 34.3 03/29/16 1808: Magnesium 1.8 03/29/16 0420: Anion Gap 6, Estimated GFR > 60, Glucose 107 H, Calcium 8.5, Phosphorus 3.7, Magnesium 1.5 L, Total Bilirubin 0.4, AST 26, ALT 30, Albumin 2.9 L Microbiology 03/28 1330 UPPER RESP: Surveillance Culture - COMP 03/28 1330 GI: Surveillance Culture - COMP Assessment/Plan Assessment/Plan The patient has been discontinued from IV sedation. She is not actively withdrawing at this time. Her blood pressure is slightly elevated. A diuretic is going to be added to her labetalol and amlodipine. Her blood pressure should just be monitored for the rest of her hospital stay and she should be discharged on these medications. She does not need further telemetry. Continue telemetry? No
--- NOTE | 2016-03-30 11:02 | NUR ---
@1000-ADMINISTERED INCREASED DOSE OF LASIX 80MG IV AT THIS TIME. ASSISTED TO CHAIR SCALE AND BSC. CONT ON DOBUTAMINE GTT. CONT TO MONITOR. CALL SIMONE ROSENBAUM.
--- NOTE | 2016-03-30 11:47 | ECHOCARDIOGRAM REPORT ---
MIKEL MEAD Age: 55 : 1960 Gender: F Exam Date: 03/28/2016 09:25 Exam Location: [address] [place] [address] A Ht (in): 66 Wt (lb): 129 BSA: 1.65 BP: 164 / 90 Ordering Physician: KAMERON OSORIO MD Referring Physician: Edmundo Villagran MD Chief, SoC Technologist: Latanya Catherine [facility] Room Number: 175 Indications: HYPERTENSION Rhythm: Sinus Technical Quality: Good FINDINGS Left Ventricle Normal size left ventricle. Mild to moderate concentric left ventricular hypertrophy. Normal left ventricular ejection fraction visually estimated at >65%. No obvious regional wall motion abnormalities. Abnormal relaxation filling pattern of the left ventricle for age (stage 1 diastolic dysfunction). Right Ventricle The right ventricle is normal in size and function. Right Atrium The right atrium is normal in size. Left Atrium The left atrium is normal in size. The interatrial septum is intact. Mitral Valve Mild thickening/calcification of the mitral valve leaflets. No mitral regurgitation. Aortic Valve Structurally normal aortic valve without significant sclerosis or stenosis. There is no aortic regurgitation. Tricuspid Valve The tricuspid valve is normal in structure and function. There is trace tricuspid regurgitation. Pulmonary artery systolic pressure is normal. Pulmonic Valve Structurally normal pulmonic valve. There is no pulmonic regurgitation. Pericardium Normal pericardium without effusion. No pleural effusion. Great Vessels Normal aortic root dimension. The aortic arch and great vessels are well seen and are normal. CONCLUSIONS Mild to moderate concentric left ventricular hypertrophy. Normal left ventricular ejection fraction visually estimated at > 65%. No obvious regional wall motion abnormalities. Abnormal relaxation filling pattern of the left ventricle for age (stage 1 diastolic dysfunction). The left atrium is normal in size. Mild thickening/calcification of the mitral valve leaflets. No mitral regurgitation. Structurally normal aortic valve without significant sclerosis or stenosis. There is no aortic regurgitation. Pulmonary artery systolic pressure is normal. Edmundo Villagran M.D. (Electronically Signed) Final Date: 28 March 2016 13:12 Amended: 29 March 2016 10:29 MEASUREMENTS (Male / Female) Normal Values 2D ECHO LV Diastolic Diameter PLAX 4.2 cm 4.2 - 5.9 / 3.9 - 5.3 cm LV Systolic Diameter PLAX 2.3 cm 2.1 - 4.0 cm LV Fractional Shortening PLAX 45.2 % 25 - 46 % LV Ejection Fraction 2D Teich 76.9 % IVS Diastolic Thickness 1.4 cm LVPW Diastolic Thickness 1.4 cm LV Relative Wall Thickness 0.7 RV Internal Dim ED PLAX 2.2 cm 1.9 - 3.8 cm LVOT Diameter 1.8 cm Aortic Root Diameter 2.8 cm LA Systolic Diameter LX 3.2 cm 3.0 - 4.0 / 2.7 - 3.8 cm LA Volume 25.0 cm 18 - 58 / 22 - 52 cm Ascending Aorta Diameter 3.1 cm DOPPLER AV Peak Velocity 181.0 cm/s AV Peak Gradient 13.1 mmHg AV Mean Velocity 115.0 cm/s AV Mean Gradient 6.0 mmHg AV Velocity Time Integral 34.2 cm LVOT Peak Velocity 124.0 cm/s LVOT Peak Gradient 6.2 mmHg LVOT Mean Velocity 89.1 cm/s LVOT Mean Gradient 4.0 mmHg LVOT Velocity Time Integral 23.5 cm LVOT Stroke Volume 59.8 cm AV Area Cont Eq vti 1.7 cm AV Area Cont Eq pk 1.7 cm MV Peak Velocity 94.4 cm/s MV Peak Gradient 3.6 mmHg MV Mean Velocity 50.6 cm/s MV Mean Gradient 1.0 mmHg Mitral E Point Velocity 68.5 cm/s Mitral A Point Velocity 70.2 cm/s Mitral E to A Ratio 1.0 MV PHT Velocity 74.7 cm/s MV Deceleration Starr 361.0 cm/s MV Pressure Half Time 62.1 ms MV Area PHT 3.5 cm MV Deceleration Time 236.0 ms TR Peak Velocity 235.0 cm/s TR Peak Gradient 22.1 mmHg Right Atrial Pressure 5.0 mmHg Pulmonary Artery Systolic Pressu 27.1 mmHg Right Ventricular Systolic Press 27.1 mmHg PV Peak Velocity 101.0 cm/s PV Peak Gradient 4.1 mmHg PV Mean Velocity 70.9 cm/s PV Mean Gradient 2.0 mmHg PV Velocity Time Integral 21.0 cm LV E' Lateral Velocity 9.2 cm/s Mitral E to LV E' Lateral Ratio 7.5 LV E' Septal Velocity 5.6 cm/s Mitral E to LV E' Septal Ratio 12.3
--- NOTE | 2016-03-30 12:24 | NUR ---
@1200-MEDICATED WITH SCHED ATIVAN 1.5MG PO PER TAPER. CIWA 3. PT COOP. IMPULSIVE AT TIMES. C/O PAIN TO R HIP, L FOOT AND HEADACHE. PAIN 08/16-MEDICATED WITH PRN PERCOCET 2 TABS AT THIS TIME. NEW MED DYAZIDE ADMINISTERED. CONT TO MONITOR, CALL NICHOLS WITHIN REACH.
--- NOTE | 2016-03-30 14:20 | NUR ---
NURSING NOTE: PT ARRIVED TO FLOOR VIA BED WITH DISTRIBUTION ACCOMANIPED BY PSM, PT AWAKE, A/FORGETFUL, BED ALARM IN USE, PT DENIES PAIN AT THIS TIME, ALPS PLACED. SKIN INTACT, CIWA DOCUMENTED. CONT TO MONITOR.
--- NOTE | 2016-03-30 14:26 | NUR ---
@1400-PT TRANSFERRED TO RM 204-2. REPORT GIVEN TO BRIE. PT AWARE OF TRANSFER TO [facility]. SITTER TRANSPORTED WITH PT.
--- NOTE | 2016-03-30 16:17 | PN- Psychiatry ---
Assessment/Plan Impression: Identifying Info: 55-year-old female presents status post seizure on 03/26/2016 and subsequently admitted for alcohol withdrawal. Briefly Required ICU level care with [place] ben[place]tez now on general medicine. SUBJECTIVE "When I wake up and not sure I am I think I'm at home and I wonder why someone painted my room." Patient reports she is only been drinking for about one week after a long period of sobriety states she had a bloody So or brunch one week ago and since then has been having 5 "nips" of liquor daily during the morning and then no other drinking at night. She reports DCF involvement in her life and fears she may lose custody of her 11yo son. "Yemi" is her lead case manager. States she has an appointment with [facility] on April 05 r/t to this case. She is open to residential alcohol treatment and states she had a previous stay at [facility] in 2002 after which she had 13 year sobriety. Additionally she would be open to [facility] post residential treatment and requests recommendations for marriage counseling. Brief ROS Gait: Unsteady +1 assist Sleep: Poor Appetite: Did not assess OBJECTIVE Mental Status Exam Presentation/Appearance: Cooperative with evaluation. Hospital garb. Somewhat unkempt. Orientation: Oriented to self, place, and year. names day as " the and " Sensorium: Awake and alert Eye contact: Appropriate Affect: Somewhat labile and tearful at times, wide range Mood: "Very sad" Depression: Endorses high level Anxiety: Endorses Thought Content: - Denies SI/HI, AH/VH, PI. States and also believes they will not kill themselves. "I would never hurt myself, I need to be there for my son" - Denies Hopeless/Helpless Thoughts Thought Process: Confused at times Speech: Normal tone and rate Judgment: Fair Insight: Fair Cognition: Memory: Pronounced short-term deficits cannot recall the past few days Attention/Concentration: Fair CIWA over last 12 hours: 3,16,3,3,3,5,4,3,3,4 10mg of Ativan over past 24 hours ASSESSMENT 55-year-old female presents status post seizure with continued confusion in the context of alcohol withdrawal. She was previously prescribed citalopram by PCP which indicates mood disturbance that may have predated the recent alcohol use. Differential diagnosis Alcohol use disorder, severe Delirium due to alcohol withdrawal r/o Unspecified mood disorder Suggestion: 1. Appreciate social work input for disposition planning. Will provide patient with list of local therapists. 2. Continue CIWA protocol and Ativan as currently ordered with PRNs. Continue vitamin supplementation. 3. Continue to hold citalopram with plan to restart as delirium clears. 4. Consider starting melatonin 10 mg or Rozerem 8 mg daily at bedtime to regulate sleep wake cycle. 5. Please continue to avoid benzodiazepines, opioid analgesics, and meds with strong anticholinergic properties as much as possible to prevent further confusion. 6. Please initiate the following nonpharmacologic interventions: -Avoid nursing and medical procedures during sleep hours whenever possible - Cluster at night interventions that must be completed as much as possible to minimize sleep disruption - Decrease noise patient area during sleeping hours - Reduce lighting at night - Ensure patient has any sensory aids close by that he regularly uses 7. Continue one-to-one sitter. 8. At present the patient is fairly lucid however her level of confusion has waxed and waned so if she would like to leave AMA she will require a capacity assessment which can be completed by any physician. Psychiatry would be glad to assist if necessary. Thank you for including psychiatry in this case we will continue to follow. Kyrie Velasco APRN, pager [phone] Subjective Subjective: .
--- NOTE | 2016-03-30 19:32 | NUR ---
Following patients progress as it relates to her detox. Aware of transfer to Gen Med and continued ativan taper. Aware that patient has expressed interest in residential [facility] Rehab. Will research insurance coverage and plan accordingly.
[2016-03-31] VITALS: BP 130/70
[2016-03-31 00:06] VITALS: BP 130/70
--- NOTE | 2016-03-31 07:07 | PN- Housestaff ---
See Addendum MARIBEL JOHNSON,JULIA 03/31/16 0707: Subjective Follow-up For: alcohol detox left foot pain and swelling Subjective: Patient is alert and oriented in no distress. Patient states she needs to stay in hospital to complete the detox and to get help for the pain on the left foot as well as the neck. Reports no headache or dizziness, no abdominal pain, nausea vomiting, chest pain or palpitations. Review of Systems Constitutional: Denies: chills, fever, weakness. EENTM: Reports: no symptoms. Cardiovascular: Reports: no symptoms. Respiratory: Reports: no symptoms. Gastrointestinal: Reports: no symptoms. Genitourinary: Reports: no symptoms. Musculoskeletal: Reports: back pain, joint pain. Skin: Reports: no symptoms. Neurological/Psychological: Reports: anxiety. Denies: headache, weakness. Objective Last 24 Hrs of Vital Signs/I&O Vital Signs Date Time Temp Pulse Resp B/P Pulse O2 O2 Flow FiO2 Ox Delivery Rate 03/31 1718 75.0 75 18 120/68 99 03/31 0823 97.6 72 18 122/70 98 Room Air 03/31 0006 97.8 84 18 130/70 94 Room Air 03/31 0000 97.8 84 18 130/70 03/30 2058 88 140/72 Intake & Output 03/31 1600 03/31 0800 03/31 0000 Intake Total 960 300 600 Output Total 400 Balance 960 -100 600 Intake, IV 10 Intake, Oral 950 300 600 Number 0 Bowel Movements Output, Urine 400 Physical Exam General Appearance: Alert, Oriented X3, Cooperative, No Acute Distress Skin: No Rashes, No Significant Lesion HEENT: Atraumatic, EOMI Neck: Supple, No JVD Cardiovascular: Normal S1, Normal S2, No Murmurs Lungs: Clear to Auscultation, Normal Air Movement Abdomen: Soft, No Tenderness Neurological: Normal Speech, Normal Tone Extremities: No Clubbing, No Cyanosis, Normal Pulses, there is tenderness and swelling on the personal aspect of the left foot more prominent on the second third and fourth metatarsal bones Vascular: Normal Pulses, Pulses Symmetrical Current Medications: Current Medications Sig/Kary Start time Last Medication Dose Route Stop Time Status Admin Acetaminophen 650 MG Q6 PRN 03/26 1545 AC 03/29 PO 2250 Amlodipine Besylate 10 MG DAILY 03/26 1625 AC 03/31 PO 0825 Cyanocobalamin 1,000 MCG DAILY 03/27 1704 AC 03/31 PO 0825 Folic Acid 1 MG DAILY 03/27 1704 AC 03/31 PO 0825 Haloperidol 1 MG Q2P PRN 03/29 1245 AC IM Heparin Sodium 5,000 UNIT Q8 03/26 2200 AC 03/31 (Porcine) SC 1344 Labetalol HCl 200 MG BID 03/26 1930 AC 03/31 PO 0825 Lorazepam 0.5 MG ONCE 04/03 0000 AC PO 04/03 0001 Lorazepam 0.5 MG ONCE ONE 04/01 1800 AC PO 04/01 1801 Lorazepam 1.5 MG Q12H 03/31 0600 AC 03/31 PO 03/31 180 1703 Lorazepam 1.5 MG Q6 03/30 0600 DC 03/30 PO 03/30 1801 1815 Lorazepam 0 Q1P PRN 03/28 1645 AC 03/30 IV 0200 Magnesium Oxide 400 MG BID 03/30 1000 AC 03/31 PO 04/02 220 0825 Melatonin 10 MG AT BEDTIME 03/30 2200 AC 03/30 PO 2058 Multivitamins 1 TAB DAILY 03/27 1704 AC 03/31 PO 0825 Nicotine 14 MG DAILY 03/27 2040 AC 03/31 TOP 0825 Olanzapine 2.5 MG Q4P PRN 03/28 1645 AC PO Oxycodone/ 2 TAB Q6-PRN PRN 03/30 1100 AC 03/31 Acetaminophen PO 1226 Oxycodone/ 1 TAB Q4P PRN 03/26 1900 AC 03/31 Acetaminophen PO 1703 Patient Medication 1 ED .STK-MED ONE 03/31 1332 [place] Teaching ED 03/31 1333 Thiamine HCl 100 MG DAILY 03/30 1000 AC 03/31 PO 0825 Triamterene/HCTZ 1 CAP DAILY 03/30 1038 AC 03/31 PO 0825 Last 24 Hrs of Lab/Kameron Results Last 24 Hrs of Labs/Mics: Laboratory Tests 03/31/16 0630: Anion Gap 10, Estimated GFR 57 L, BUN/Creatinine Ratio 12.0, CBC w Diff NO MAN DIFF REQ, RBC 3.85 L, MCV 92.4, MCH 31.5 H, RDW 14.7 H, MPV 8.4, Gran % 58.3, Lymphocytes % 27.0, Monocytes % 8.6, Eosinophils % 5.6 H, Basophils % 0.5, Absolute Granulocytes 3.9, Absolute Lymphocytes 1.8, Absolute Monocytes 0.6, Absolute Eosinophils 0.4, Absolute Basophils 0, PUBS MCHC 34.1 Assessment/Plan Assessment: This is a 55-year-old woman with a past medical history of stress-induced CT status post cath in 2010, history of non-nodule on CT chest 2014, chronic pain due to cervical stenosis, anxiety presents to the ED with chief complaints of questionable seizure-like activity and was found to be hypertensive to 212 systolic in the setting of having consumed alcohol. Problem list/plan: Hypertensive urgency * Most likely secondary to noncompliance with medications as well as alcohol withdrawal * Blood pressure is now well controlled: 120/68 today * Continue with labetalol 200 mg twice a day by mouth * Continue with amlodipine 10 mg by mouth daily * Echocardiogram: EF of >65% * Cardio on board, thank you for recommendations Alcohol withdrawal: I called and talked to patient's sister (who is right now taking care of her 11 year old son, according to the sister patient has been drinking 4-5 small bottles of ROM for the past few weeks.) * CIWA scores have been 0-4 today. Patient has required 3 mg of Ativan since this morning * on Ativan taper requiring 0.5 mg Q12 today, will continue to taper, 0.5 mg tomorrow * F/U Psych consult/Social work consult Hypokalemia and hypomagnesemia * Most likely secondary to alcoholism * Will Replete accordingly * repeat BEP in AM DVT prophylaxis * Heparin 5000 international units 3 times a day subcutaneous Diet * heart healthy diet CODE STATUS * Full code Problem List: 1. Status post cervical spinal fusion 2. Lisfranc fracture 3. Alcohol withdrawal 4. Hypertensive urgency Pain Ratin Pain Location: Left foot Pain Goal: Pain 4 or less Pain Plan: mild/moderate and severe pain pathways Tomorrow's Labs & Rationales: BEP (hyponatremia, hypomagnesemia) Consulting Request: Consulting Specialty: Cardiology TRA JOHNSON,BRYAN 03/31/16 1355: Attending Review Statement Attending Statement Attending MD Statement: examined this patient, discuss w/resident/PA/MECHANICAL AND AUTO BODY CAR CHECKER, agreed w/resident/PA/MECHANICAL AND AUTO BODY CAR CHECKER, reviewed EMR data (avail) Attending Assessment/Plan: Patient is currently awake alert slightly anxious and complains of left foot pain. Her vital signs current stable and she is currently afebrile. Her left foot shows signs of swelling over the dorsum of foot area. Chest exam is clear. She only has minimal tremors of both hands. Her WBC count is 6.8. Sodium is 133. Patient states that she was sober for 13 years and she only drank last Tuesday. Assessment plan * Alcohol binge drinking * Left foot fracture of unclear etiology * Hypokalemia * Hypomagnesemia Plan Please confirm with family whether patient has now been drinking alcohol regularly.. This is the case then Ativan can be discontinued. Podiatry consult for evaluation of left foot fracture.
[2016-03-31 08:13] LABS: ABSOLUTE BASOPHIL COUNT 0 /CUMM (0.0-0.2); ABSOLUTE EOSINOPHIL COUNT 0.4 /CUMM (0.0-0.7); ABSOLUTE GRANULOCYTE CT 3.9 /CUMM (1.4-6.5); ABSOLUTE LYMPH COUNT 1.8 /CUMM (1.2-3.4); ABSOLUTE MONOCYTE COUNT 0.6 /CUMM (0.10-0.60); BASOPHIL % 0.5 % (0.0-2.0); EOSINOPHIL % 5.6 % (0-5); GRANULOCYTE % 58.3 % (42.2-75.2); HEMATOCRIT 35.6 % (37-47); MEAN CORPUSCULAR HGB 31.5 PG (27.0-31.0); MEAN CORPUSCULAR HGB CONC 34.1 G/DL (33.0-37.0); MEAN CORPUSCULAR VOLUME 92.4 FL (81.0-99.0); MEAN PLATELET VOLUME 8.4 FL (7.4-10.4); PLATELET COUNT 164 /CUMM (130-400); RBC DISTRIBUTION WIDTH 14.7 % (11.5-14.5); RED BLOOD CELL CT 3.85 /CUMM (4.20-5.40); WHITE BLOOD CELL COUNT 6.8 /CUMM (4.8-10.8)
[2016-03-31 08:23] VITALS: BP 122/70
--- NOTE | 2016-03-31 08:31 | PN- Student ---
LAMIN JAMES 03/31/16 0815: Subjective Subjective: 55 y.o. female h/o hypertension, etoh withdrawal seizures, SC in 2011, chronic pain from cervical stenosis, anxiety HD#6 with etoh withdrawal compliacted by seizures, hypertensive urgency. Pt was admitted to [facility] for monitorng and was transferred to ICU due to increasing agitation. Now on gen med floor as agitation and hypertensive urgency has resolved. Pt says she was sober for 15 years before relapsing Tuesday morning. She endorses no reason for this relapse. She says she had 10 50mL bottles at that time. Pt is currently feeling well and complains only of her chronic pain in her neck which is no worse than normal. Also has pain in her left foot, says it was fractured years ago and she has had multiple procedures on that foot and leg, pain and edema are worse than normal, does not recall any recent trauma to that foot. She had a headache and visual changes on admission which have improved but not completely resolved. Tolerating her diet, good appetite, denies nausea/ vomiting. Has been OOB with assistnace, says she is a little unsteady but denies dizziness, lightheadedness. Urinating spontaneously, denies dysuria, urgency, frequency. Had a BM yesterday, denies dark/bloody stools. Complains of still feeling constipated. CIWA scores have been 0-4 today. No other questions, complaints, or concerns this morning. ROS: General: neg fever/chills Neuro: pos headache, visual changes (see HPI) Cardiac: neg chest pain, palpitations Lungs: neg SOB, cough GI: pos constipation (see HPI); neg diarrhea, nausea/vomiting MSK: pos chronic neck and left foot pain Objective Objective: General: resting comfortably in bed with sitter at bedside, in no acute distress HEENT: head atraumatic, PERRL Neck: supple, no lymphadenopathy or tenderness of cervical lymph nodes, no thyromegaly Cardiac: S1 and S2 heard, RRR, no M/R/G Lungs: CTA bilaterally, no W/R/R Abdomen: nondistended, normoactive BS, soft, mild tenderness in LLQ no rebound or gaurding MSK: calves soft and nontender, left foot mild edema no erythema warmth deformity or lesions Neuro: AAOx3, no tremor, cranial nerves II-XII grossly intact Results Results: Laboratory Tests 03/31/16 0630: Anion Gap 10, Estimated GFR 57 L, BUN/Creatinine Ratio 12.0, CBC w Diff NO MAN DIFF REQ, RBC 3.85 L, MCV 92.4, MCH 31.5 H, RDW 14.7 H, MPV 8.4, Gran % 58.3, Lymphocytes % 27.0, Monocytes % 8.6, Eosinophils % 5.6 H, Basophils % 0.5, Absolute Granulocytes 3.9, Absolute Lymphocytes 1.8, Absolute Monocytes 0.6, Absolute Eosinophils 0.4, Absolute Basophils 0, PUBS MCHC 34.1 03/30/16 0450: Anion Gap 8, Estimated GFR > 60, Glucose 101 H, Calcium 8.9, Phosphorus 5.4 H, Magnesium 1.7, Total Bilirubin 0.4, AST 40 H, ALT 33, Albumin 3.2 L, CBC w Diff NO MAN DIFF REQ, RBC 3.53 L, MCV 92.2, MCH 31.6 H, RDW 14.5, MPV 9.1, Gran % 63.5, Lymphocytes % 24.8, Monocytes % 5.6, Eosinophils % 5.7 H, Basophils % 0.4, Absolute Granulocytes 4.3, Absolute Lymphocytes 1.7, Absolute Monocytes 0.4, Absolute Eosinophils 0.4, Absolute Basophils 0, PUBS MCHC 34.3 03/29/16 1808: Magnesium 1.8 03/29/16 0420: Anion Gap 6, Estimated GFR > 60, Glucose 107 H, Calcium 8.5, Phosphorus 3.7, Magnesium 1.5 L, Total Bilirubin 0.4, AST 26, ALT 30, Albumin 2.9 L Microbiology 03/28 1329 UPPER RESP: Surveillance Culture - COMP 03/28 1329 GI: Surveillance Culture - COMP Assessment/Plan Assessment: 55 y.o. female presents with alcohol withdrawal seizures and hypertensive urgency. Alcohol withdrawal has been resolved. Pt was sober for many years, reason for current relapse unknown. Hypertensive urgency has resolved. Pt was noncompliant with medications due to loss of insurance benefits. She says that her benefits have returned and she will be able to fill her prescriptions on discharged. Left foot pain s/p distant trauma and procedural history, unknown if there was any new trauma to the area. 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 Plan: Alcohol withdrawal: - acute withdrawal has resolved - Ativan taper - B12, folic acid, thiamine supplementation - contact pt's sister to determine accurate timing and amounts of alcohol use - discharge with IOP follow-up for treatment Hypertensive urgency: - BP stabilized, today 130/70 - currently on Norvasc, Dyazide, labetalol - discharge with PCP follow-up for management Left foot pain: - podiatry consult
--- NOTE | 2016-03-31 15:15 | PN- Psychiatry ---
Assessment/Plan Impression: Identifying Info: 55-year-old female presents status post seizure on 03/26/2016 and subsequently admitted for alcohol withdrawal. Briefly Required ICU level care with Atmichelle benítez now on general medicine. SUBJECTIVE "I just feel disgusted with it all," r/t drinking again. Patient reports aggravation at herself and embarrassment. She continues to endorse confusion intermittently, especially when awakening and it takes her several moments to figure out where she is. Continues to be agreeable to residential treatment. Brief ROS Gait: Unsteady +1 assist Sleep: Poor Appetite: Did not assess OBJECTIVE Mental Status Exam Presentation/Appearance: Cooperative with evaluation. Hospital garb. Somewhat unkempt. Orientation: Oriented to self, believes she is in [place] but is able to state she is at [facility] with redirection, Is oriented to day of the week, but not date "17" Sensorium: Awake and alert Eye contact: Appropriate Affect: Less labile full range Mood: "Aggravated" Depression: Endorses high level Anxiety: No longer endorses Thought Content: - Denies SI/HI, AH/VH, PI. States and also believes they will not kill themselves. - Denies Hopeless/Helpless Thoughts Thought Process: Confused at times Speech: Normal tone and rate Judgment: Fair Insight: Fair Cognition: Memory: Pronounced short-term deficits cannot recall the past few days well recognizes this clinical writer but cannot recall much of yesterday's conversation. Attention/Concentration: Fair CIWA over last 12 hours: 4,4,1,4,0,2,1 4.5 mg of Ativan over past 24 hours ASSESSMENT 55-year-old female presents status post seizure with some continued but improved confusion in the context of alcohol withdrawal. She was previously prescribed citalopram by PCP which indicates mood disturbance that may have predated the recent alcohol use. Differential diagnosis Alcohol use disorder, severe Delirium due to alcohol withdrawal r/o Unspecified mood disorder Suggestion: 1. Appreciate social work input for disposition planning. Will provide patient with list of local therapists. Pt remains agreeable to residential tx. 2. Continue CIWA protocol and Ativan as currently ordered with PRNs. Continue vitamin supplementation. Continue ativan taper as currently ordered. 3. Continue to hold citalopram with plan to restart as delirium clears. 4. Please continue to avoid benzodiazepines, opioid analgesics, and meds with strong anticholinergic properties as much as possible to prevent further confusion. 5. Please initiate the following nonpharmacologic interventions: -Avoid nursing and medical procedures during sleep hours whenever possible - Cluster at night interventions that must be completed as much as possible to minimize sleep disruption - Decrease noise patient area during sleeping hours - Reduce lighting at night - Ensure patient has any sensory aids close by that he regularly uses 6. Reccomend continuing one-to-one sitter for confusion as with foot injury pt remains high risk to fall. Reassess need for sitter in AM. Thank you for including psychiatry in this case we will continue to follow. Kyrie Velasco APRN, pager [phone] Subjective Subjective: .
[2016-03-31 16:00] VITALS: BP 120/68
[2016-03-31 17:18] VITALS: BP 120/68
[2016-03-31 22:00] VITALS: BP 124/78
[2016-04-01 00:21] VITALS: BP 112/72
--- NOTE | 2016-04-01 07:12 | PN- Housestaff ---
MARIBEL JOHNSON,[facility] 04/01/16 0712: Subjective Follow-up For: alcohol detox left foot pain and swelling Subjective: Patient is alert and oriented in no distress. Patient wants to go home and has no complaints. Reports no headache or dizziness, no abdominal pain, nausea vomiting, chest pain or palpitations. Reprots pain in the left foot when walking. Review of Systems Constitutional: Denies: chills, fever, weakness. EENTM: Reports: no symptoms. Cardiovascular: Denies: chest pain, palpitations. Respiratory: Reports: no symptoms. Gastrointestinal: Reports: no symptoms. Genitourinary: Reports: no symptoms. Musculoskeletal: Reports: back pain, joint pain. Skin: Reports: no symptoms. Neurological/Psychological: Reports: emotional problems. Denies: ataxia, tremors. Objective Last 24 Hrs of Vital Signs/I&O Vital Signs Date Time Temp Pulse Resp B/P Pulse O2 O2 Flow FiO2 Ox Delivery Rate 04/01 0836 97.8 82 20 118/80 93 Room Air 04/01 0021 98.2 79 18 112/72 96 Room Air 03/31 2200 88 18 124/78 03/31 2059 88 124/78 03/31 1718 97.5 75 18 120/68 99 03/31 1600 97.6 75 18 120/68 Intake & Output 04/01 1600 04/01 0800 04/01 0000 Intake Total 240 840 Output Total Balance 240 840 Intake, Oral 240 840 Physical Exam General Appearance: Alert, Oriented X3, Cooperative, No Acute Distress, mood is labile, gets tearful during the convsersation Skin: No Rashes, No Breakdown, No Significant Lesion HEENT: Atraumatic, EOMI Neck: Supple Cardiovascular: Regular Rate, Normal S1, Normal S2, No Murmurs Lungs: Clear to Auscultation, Normal Air Movement Abdomen: Soft, No Tenderness Neurological: Normal Speech, Strength at 5/5 X4 Ext, Normal Tone, Sensation Intact, Cranial Nerves 3-12 NL Extremities: there is swelling and tenderness on the left foot. Vascular: Pulses Symmetrical Current Medications: Current Medications Sig/Kary Start time Last Medication Dose Route Stop Time Status Admin Acetaminophen 650 MG Q6 PRN 03/26 1545 AC 03/29 PO 2250 Amlodipine Besylate 10 MG DAILY 03/26 1625 AC 04/01 PO 0844 Cyanocobalamin 1,000 MCG DAILY 03/27 1704 AC 04/01 PO 0844 Folic Acid 1 MG DAILY 03/27 1704 AC 04/01 PO 0844 Haloperidol 1 MG Q2P PRN 03/29 1245 AC IM Heparin Sodium 5,000 UNIT Q8 03/26 2200 AC 04/01 (Porcine) SC 0515 Labetalol HCl 200 MG BID 03/26 1930 AC 04/01 PO 0844 Lorazepam 0.5 MG ONCE 04/03 0000 AC PO 04/03 0001 Lorazepam 0.5 MG ONCE ONE 04/01 1800 AC PO 04/01 1801 Lorazepam 1.5 MG Q12H 03/31 0600 DC 03/31 PO 03/31 1801 1703 Lorazepam 0 Q1P PRN 03/28 1645 AC 03/30 IV 0200 Magnesium Oxide 400 MG BID 03/30 1000 AC 04/01 PO 04/02 2201 0844 Melatonin 10 MG AT BEDTIME 03/30 2200 AC 03/31 PO 2057 Multivitamins 1 TAB DAILY 03/27 1704 AC 04/01 PO 0844 Nicotine 14 MG DAILY 03/27 2040 AC 04/01 TOP 0844 Olanzapine 2.5 MG Q4P PRN 03/28 1645 AC PO Oxycodone/ 2 TAB Q6-PRN PRN 03/30 1100 AC 04/01 Acetaminophen PO 0515 Oxycodone/ 1 TAB Q4P PRN 03/26 1900 AC 03/31 Acetaminophen PO 1703 Patient Medication 1 ED .STK-MED ONE 03/31 1332 [place] Teaching ED 03/31 1333 Thiamine HCl 100 MG DAILY 03/30 1000 AC 04/01 PO 0844 Triamterene/HCTZ 1 CAP DAILY 03/30 1038 AC 04/01 PO 0844 Last 24 Hrs of Lab/Kameron Results Last 24 Hrs of Labs/Mics: Laboratory Tests 04/01/16 0635: Anion Gap 9, Estimated GFR 51 L, BUN/Creatinine Ratio 15.5, Magnesium 1.9 Assessment/Plan Assessment: This is a 55-year-old woman with a past medical history of stress-induced [place] status post cath in 2010, history of non-nodule on CT chest 2014, chronic pain due to cervical stenosis, anxiety presents to the ED with chief complaints of questionable seizure-like activity and was found to be hypertensive to 212 systolic in the setting of having consumed alcohol. Problem list/plan: Left foot Lisfranc injury There is tenderness and swelling on the dorsal aspect of the foot. reports she had an accident 3 years ago when she had a tibia-fibula fracture, but also reports injury on Tuesday03/26/16 when she passed out. CT scan has shown 'several fractures across the Lisfranc joints with minimal displacement and Several fracture fragments are present along the course of the Lisfranc ligament between the medial cuneiform and 2nd metatarsal base'. * Orthopedics consulted and followed recommendations. * will work with PT further tomorrow and possibly will be discharged, will f/u in 1 week with orthopedics Hypertensive urgency - resolved Most likely secondary to noncompliance with medications as well as alcohol withdrawal * Blood pressure is now well controlled: 118/80 today * Continue with labetalol 200 mg twice a day by mouth * Continue with amlodipine 10 mg by mouth daily * Echocardiogram: EF of >65% * Cardio on board, thank you for your recommendations Alcohol withdrawal - resolved talked to the patient's sister (who is right now taking care of her 11 year old son, according to the sister patient has been drinking 4-5 small bottles of ROM for the past few weeks.) * CIWA scores have been 0-4 today. Patient required no Ativan today * Psych consult/Social work consult in place. Will touch base with transition social worker tomorrow to coordinate for a psychiatry service outpatient. Hypokalemia and hypomagnesemia - resolved * Most likely secondary to alcoholism * Repleted accordingly DVT prophylaxis * Heparin 5000 international units 3 times a day subcutaneous Diet * heart healthy diet CODE STATUS * Full code Problem List: 1. Status post cervical spinal fusion 2. Lisfranc fracture 3. Alcohol withdrawal 4. Alcohol dependence 5. Hypertensive emergency 6. Fall (on) (from) other stairs and steps, initial encounter Pain Ratin Pain Location: currently no pain, reports pain on the foot which is controlled Pain Goal: Pain 4 or less Pain Plan: tylenol for mild pain percocet for severe pain Tomorrow's Labs & Rationales: none Consulting Request: Consulting Specialty: Cardiology TRA JOHNSON,BRYAN 04/01/16 0943: Attending MD Review Statement Attending Statement Attending Assessment/Plan: Attending MD Statement: examined this patient, discuss w/resident/PA/METAL FENCE ERECTOR, agreed w/resident/PA/METAL FENCE ERECTOR, reviewed EMR data (avail) Attending Assessment/Plan: Patient is currently awake alert oriented and does not appear to be confused. She is Slightly anxious and complains of moderate pain of left foot pain. Her vital signs current stable and she is currently afebrile. Her left foot shows signs of swelling over the dorsum of foot area. Chest exam is clear. She only has minimal tremors of both hands. Sodium is 134 and creatinine has increased to 1.1. No tremors of the hands are seen. Assessment plan * Alcohol abuse confirmed by family members * Left foot fracture of unclear etiology * Hypokalemia * Hypomagnesemia Plan Continue Ativan taper Orthopedic consult for evaluation of left foot fracture. If clear by orthopedic patient can be discharged home today with follow-up with orthopedic. Given her creatinine is slightly elevated I would encourage her to take more oral liquids. He is Tylenol and Ultram for pain control instead of Naprosyn.
[2016-04-01 08:36] VITALS: BP 118/80
--- NOTE | 2016-04-01 11:56 | Cons- Orthopedic ---
General Information and HPI Consulting Request Date of Consult: 04/01/16 Requested By: NERI BRYSON MD Reason for Consult: pain left foot History of Present Illness: Patient is a 55-year-old alcoholic female who had a fall about 6 days ago injuring her left foot. She has had a prior distal tibia fracture where she has an IM julien. She did have a previous staph infection when she had a previous surgery. She has been up ambulating in the hospital but states that her left foot is painful. She states she did have an injury to this foot when she had the prior ankle injury. X-rays were ordered and a CAT scan of her left foot. The CAT scan shows a fracture at the base of the Lisfranc's area of the left foot. There is very mild lateral displacement. She is supposed to be discharged from the hospital today so we can go ahead and let that happen. It is okay for the patient be discharged today in a boot before she leaves and crutches. She should remain toe-touch weightbearing on the left side in a cam walker type boot. Allergies/Medications Allergies: Coded Allergies: Penicillins (Severe, RASH, HIVES 04/14/15) Past History Medical History Neurological: NONE EENT: NONE Cardiovascular: hypertension, stress induced [place] Respiratory: NONE Gastrointestinal: NONE Hepatic: NONE Renal: NONE Musculoskeletal: CERVICAL STENOSIS AND FX Psychiatric: NONE Endocrine: NONE Blood Disorders: NONE Cancer(s): NONE Surgical History Pertinent Surgical History: , NECK SURGERY Family History Relations & Conditions If Any: MOTHER CABG Psychosocial History Where Do You Live? Home Smoking Status: Former Smoker ETOH Use: alcoholic, SOBER FOR 9YRS UNTIL LAST WEEK. NOW DRINKING 1PINT/D Illicit Drug Use: denies illicit drug use Exam & Diagnostic Data Vital Signs and I&O Vital Signs Date Time Temp Pulse Resp B/P Pulse O2 O2 Flow FiO2 Ox Delivery Rate 04/01 0836 97.8 82 20 118/80 93 Room Air 04/01 0021 98.2 79 18 112/72 96 Room Air 03/31 2200 88 18 124/78 03/31 2059 88 124/78 03/31 1718 97.5 75 18 120/68 99 03/31 1600 97.6 75 18 120/68 Intake & Output 04/01 1600 04/01 0800 04/01 0000 03/31 1600 03/31 0800 03/31 0000 Intake Total 240 840 960 300 600 Output Total 400 Balance 240 840 960 -100 600 Intake, IV 10 Intake, Oral 240 840 950 300 600 Number 0 Bowel Movements Output, Urine 400 Physical Exam: On physical exam she is an alert oriented female she has some pain on the left foot over the tarsometatarsal joint area. She has no major ecchymosis mild swelling. She has well-healed scars on the left lower extremity. Neurologically grossly intact. Pulses are 2+. Assessment/Plan Assessment/Plan Assessment is left foot Lisfranc type injury. Of unknown age. She does state that she's had a least 2 injuries to that lower extremity. She did have a fall about 6 days ago but then had another injury to that foot she states with fractures of the foot back when she had her prior tib-fib fracture. I reviewed the x-rays and we will review them with Dr. Fonseca is a foot and ankle specialist. Plan is this point in time is to have them fit her with a cam walker type boot and crutches have physical therapy teach her how to use these devices and she can be discharged to home follow-up within one week. Consult Acknowledgment - Thank you for your consult request. Attending MD Review Statement Attending Statement Attending MD Statement: examined this patient
--- NOTE | 2016-04-01 14:20 | NUR ---
NURSING NOTE: PATIENT SAFTEY MONITOR RENEWED FOR HIGH FALL RISK, PT AWAKE, A/OX3, ORTHO RECOMMENDING CAM WALKING BOOT AND TTWB TO L FOOT; BOOT ORDERED; AWAITING DELIVERY. PT WORKED WITH P.T. PER P.T. PT NOT SAFE FOR DISCHARGE HOME AT THIS TIME, AL RESIDENT AND REVENUE ENFORCEMENT COLLECTION AGENT MARYUM AWARE, CONT TO MONITOR.
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
--- NOTE | 2016-04-01 15:21 | PN- Psychiatry ---
Assessment/Plan Impression: Identifying Info: 55-year-old female presents status post seizure on 03/26/2016 and subsequently admitted for alcohol withdrawal. Briefly Required ICU level care with [place] benítez now on general medicine. SUBJECTIVE "I miss my son.... I want to go home." Pt reports she is no longer interested in residential tx. Would like to follow up at [facility] as she has had a positive experience there in the past. She plans to continues to go to 4 AA meetings a week. She denies being on Celexa for at least 2 years. Brief ROS Gait: Unsteady +1 assist Sleep: Poor Appetite: Poor OBJECTIVE Mental Status Exam Presentation/Appearance: Cooperative with evaluation. Hospital garb. Lying in bed Orientation: x3 for the first time this admission Sensorium: Awake and alert Eye contact: Appropriate Affect: Laibile Mood: Somewhat laibile Depression: Endorses high level Anxiety: Endorses Thought Content: - Denies SI/HI, AH/VH, PI. States and also believes they will not kill themselves. - Denies Hopeless/Helpless Thoughts Thought Process: Linear, somewhat perseverative on wanting to leave Speech: Normal tone and rate Judgment: Fair Insight: Fair Cognition: Memory: Pronounced short-term deficits cannot recall the past few days well Attention/Concentration: Fair CIWA over last 12 hours: 0,0,0,0,1,1,0,0 3 mg of Ativan over past 24 hours Per nursing report pt has displayed impulsivity and poor safety awareness. They feel her confusion has improved greatly. ASSESSMENT 55-year-old female presents status post seizure with some with greatly improved confusionl. She now denies being perscribed an antidepressant but med rec shows celexa picked up as soon as July of 2015. If current presentation continues pt may benefit more from a mood stabilizer with antidepressant properties but this can be initiated outpt. Differential diagnosis Alcohol use disorder, severe Delirium due to alcohol withdrawal, resolving r/o Unspecified mood disorder r/o Unspecified Bipolar spectrum disorder Suggestion: 1. Appreciate social work input for disposition planning. Will provide patient with list of local therapists. Pt would like to go to [facility]. 2. Continue CIWA protocol and Ativan as currently ordered with PRNs. Continue vitamin supplementation. Continue ativan taper as currently ordered. 3. Hold citalopram. 4. Please continue to avoid benzodiazepines, opioid analgesics, and meds with strong anticholinergic properties as much as possible to prevent further confusion. 5. Please initiate the following nonpharmacologic interventions: -Avoid nursing and medical procedures during sleep hours whenever possible - Cluster at night interventions that must be completed as much as possible to minimize sleep disruption - Decrease noise patient area during sleeping hours - Reduce lighting at night - Ensure patient has any sensory aids close by that he regularly uses 6. Would reccomend continued sitter despite improved confusion due to impulsivity and poor safety awareness, pt remains a risk to fall. Thank you for including psychiatry in this case we will continue to follow. Kyrie Velasco APRN, pager [phone] Subjective Subjective: .
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
[2016-04-01 16:10] VITALS: BP 110/66
--- NOTE | 2016-04-01 17:30 | Patient Discharge Instructions ---
Discharge Instructions General Discharge Information You were seen/treated for: ALCOHOL WITHDRAWAL ADN HYPERTENSIVE URGENCY Special Instructions: PLEASE: 1. follow up with Dr. Seth, orthopedics regarding left foot fracture and follow instructions regarding the use of the boot 2. follwo up with Dr. Hughes, your PCP within a week of discharge regarding blood pressure control Activity Activity Self Limited: Yes Acute Coronary Syndrome Inclusion Criteria At DC or during hospital stay patient has or had the following: ACS DIAGNOSIS No Discharge Core Measures Meds if any: Prescribed or Continued at Discharge Meds if any: NOT Prescribed or Continued at Discharge Congestive Heart Failure Inclusion Criteria At DC or during hospital stay patient has or had the following: CHF DIAGNOSIS No Discharge Core Measures Meds if any: Prescribed or Continued at Discharge Meds if any: NOT Prescribed or Continued at Discharge Cerebrovascular accident Inclusion Criteria At DC or during hospital stay patient has or had the following: CVA/TIA Diagnosis No Discharge Core Measures Meds if any: Prescribed or Continued at Discharge Meds if any: NOT Prescribed or Continued at Discharge Venous thromboembolism Inclusion Criteria VTE Diagnosis No VTE Type NONE VTE Confirmed by (Test) NONE Discharge Core Measures - Per Current guidelines, there needs to be overlap - treatment for the first 5 days of Warfarin therapy. - If discharged on Warfarin prior to 5 days of - overlap therapy, the patient will need to be - assessed for post discharge needs including - *Post discharge parental anticoagulation - *Warfarin and/or parental anticoagulation education - *Follow up date to check INR post discharge At least 5 days overlap therapy as Inpatient No Meds if any: Prescribed or Continued at Discharge Note: Overlap Therapy is Warfarin and Anticoagulant Meds if any: NOT Prescribed or Continued at Discharge
--- NOTE | 2016-04-01 19:36 | NUR ---
Met with patient this am. She was up, awake, alert and engaged in interview. Had just been seem by ortho for fractured foot; walking boot ordered. Inquired about patients interest in residential treatment. Carmen reports that she is no longer interested in that level of care; will return to [facility]. PT eval done; not safe for discharge home yet, and patient safety monitor renewed. Please call if other social work issues are identified.
[2016-04-01 23:38] VITALS: BP 112/74
[2016-04-02] VITALS: BP 112/74
--- NOTE | 2016-04-02 06:59 | PN- Housestaff ---
See Addendum Subjective Follow-up For: left foot pain Subjective: Patient is alert and oriented, does not appear in distress, reports pain on the right groin when lifting the leg that started 2 days. Patient has pressure of speech similar to yesterday, but not tearful today. Review of Systems Constitutional: Denies: chills, fever, malaise, weakness. EENTM: Reports: no symptoms. Cardiovascular: Reports: no symptoms. Respiratory: Reports: no symptoms. Gastrointestinal: Reports: no symptoms. Genitourinary: Reports: no symptoms. Musculoskeletal: Reports: muscle pain (right groin). Skin: Reports: no symptoms. Objective Last 24 Hrs of Vital Signs/I&O Vital Signs Date Time Temp Pulse Resp B/P Pulse O2 O2 Flow FiO2 Ox Delivery Rate 04/02 0000 97.9 77 20 112/74 04/01 2338 97.9 77 20 112/74 91 Room Air 04/01 2108 80 126/80 04/01 1610 98.0 74 18 110/66 95 04/01 0836 97.8 82 20 118/80 93 Room Air Intake & Output 04/02 0800 04/02 0000 04/01 1600 Intake Total 320 800 910 Output Total 400 Balance -80 800 910 Intake, IV 10 Intake, Oral 320 800 900 Number 0 Bowel Movements Output, Urine 400 Physical Exam General Appearance: Alert, Oriented X3, Cooperative, No Acute Distress Skin: No Rashes, No Breakdown, No Significant Lesion HEENT: Atraumatic, EOMI Neck: Supple, No JVD Cardiovascular: Regular Rate, Normal S1, Normal S2, No Murmurs Lungs: Clear to Auscultation, Normal Air Movement Abdomen: Normal Bowel Sounds, Soft, No Tenderness Neurological: ROM on the right leg limited due to pain on the right groin, anterior and proximal muscles of the hip are tense to touch Extremities: swelling of the dorsal left foot much improved compared to yesterday Vascular: Normal Pulses, Pulses Symmetrical Current Medications: Current Medications Sig/Kary Start time Last Medication Dose Route Stop Time Status Admin Acetaminophen 650 MG Q6 PRN 03/26 1545 AC 03/29 PO 2250 Amlodipine Besylate 10 MG DAILY 03/26 1625 AC 04/01 PO 0844 Calcium Carbonate 500 MG DAILY 04/01 1845 AC 04/01 PO 2108 Cyanocobalamin 1,000 MCG DAILY 03/27 1704 AC 04/01 PO 0844 Folic Acid 1 MG DAILY 03/27 1704 AC 04/01 PO 0844 Haloperidol 1 MG Q2P PRN 03/29 1245 AC IM Heparin Sodium 5,000 UNIT Q8 03/26 2200 AC 04/02 (Porcine) SC 0625 Labetalol HCl 200 MG BID 03/26 1930 AC 04/01 PO 2108 Lorazepam 0.5 MG ONCE 04/03 0000 AC PO 04/03 0001 Lorazepam 0.5 MG ONCE ONE 04/01 1800 DC 04/01 PO 04/01 1801 1801 Lorazepam 0 Q1P PRN 03/28 1645 AC 03/30 IV 0200 Magnesium Oxide 400 MG BID 03/30 1000 AC 04/01 PO 04/02 220 2108 Melatonin 10 MG AT BEDTIME 03/30 220 AC 04/01 PO 2108 Multivitamins 1 TAB DAILY 03/27 1704 AC 04/01 PO 0844 Nicotine 14 MG DAILY 03/27 2040 AC 04/01 TOP 0844 Olanzapine 2.5 MG Q4P PRN 03/28 1645 AC PO Oxycodone/ 2 TAB Q6-PRN PRN 03/30 1100 AC 04/02 Acetaminophen PO 0229 Oxycodone/ 1 TAB Q4P PRN 03/26 1900 AC 03/31 Acetaminophen PO 1703 Thiamine HCl 100 MG DAILY 03/30 1000 AC 04/01 PO 0844 Triamterene/HCTZ 1 CAP DAILY 03/30 1038 AC 04/01 PO 0844 Last 24 Hrs of Lab/Kameron Results Last 24 Hrs of Labs/Mics: Laboratory Tests 04/02/16 0622: Sodium Pending, Potassium Pending, Chloride Pending, Carbon Dioxide Pending, Anion Gap Pending, BUN Pending, Creatinine Pending, BUN/Creatinine Ratio Pending Assessment/Plan Assessment: This is a 55-year-old woman with a past medical history of stress-induced MN status post cath in 2010, history of non-nodule on CT chest 2014, chronic pain due to cervical stenosis, anxiety presents to the ED with chief complaints of questionable seizure-like activity and was found to be hypertensive to 212 systolic in the setting of having consumed alcohol. Problem list/plan: Left foot Lisfranc injury There is tenderness and swelling on the dorsal aspect of the foot. reports she had an accident 3 years ago when she had a tibia-fibula fracture, but also reports injury on Tuesday03/26/16 when she passed out. CT scan has shown 'several fractures across the Lisfranc joints with minimal displacement and Several fracture fragments are present along the course of the Lisfranc ligament between the medial cuneiform and 2nd metatarsal base'. * Orthopedics consulted and followed recommendations. * will work with PT further today and will be discharged, will f/u in 1 week with orthopedics Hypertensive urgency - resolved Most likely secondary to noncompliance with medications as well as alcohol withdrawal * Blood pressure is now well controlled: 118/80 today * Continue with labetalol 200 mg twice a day by mouth * Continue with amlodipine 10 mg by mouth daily * Echocardiogram: EF of >65% * Cardio on board, thank you for your recommendations Alcohol withdrawal - resolved talked to the patient's sister (who is right now taking care of her 11 year old son, according to the sister patient has been drinking 4-5 small bottles of ROM for the past few weeks.) * CIWA scores have been 0-4 today. Patient required no Ativan today * Psych consult/Social work consult in place. Will FOLLOW UP WITH CARE ON TUESDAY. Hypokalemia and hypomagnesemia - resolved * Most likely secondary to alcoholism * Repleted accordingly DVT prophylaxis * Heparin 5000 international units 3 times a day subcutaneous Diet * heart healthy diet CODE STATUS * Full code Problem List: 1. Status post cervical spinal fusion 2. Lisfranc fracture 3. Alcohol withdrawal 4. Alcohol dependence 5. Hypertensive urgency 6. Alcohol intoxication delirium 7. Neck pain Pain Ratin Pain Location: no pain currently Pain Goal: Pain 4 or less Pain Plan: tylenol oxycodone Tomorrow's Labs & Rationales: none Consulting Request: Consulting Specialty: Cardiology
[2016-04-02 08:12] VITALS: BP 112/64
[2016-04-02 08:30] VITALS: BP 112/60
[2016-04-02] MEDS ORDERED: FOLIC ACID1 M1 PO ×2 (09:46→10:05)
[2016-04-02] MEDS ORDERED: MULTIVITAMINS1 EAC8 PO ×2 (09:47→10:05)
[2016-04-02] MEDS ORDERED: LABETALOL HCL200 M1 PO (09:59)
[2016-04-02] MEDS ORDERED: NICOTINE PATCH1 EAC2 TOP (09:59)
[2016-04-02] MEDS ORDERED: PERCOCET 5-3251 EACH PO (10:04)
--- NOTE | 2016-04-02 15:48 | NUR ---
Patient much improved today and cleared for home PT. Patient reitierates that she does not wish to go to residential rehab for ETOH; agreeable to intake at [facility] on 04/05/14. Please call if other social work needs are identified.
== END 2016-04-02 16:10 | disposition home health service (06) | DRG 897 ==
LOC: ENRESERVDT → ENRESERVTM → ERH 12:56 → ENPENDDIS 16:27 → ERHI 16:27 → CRI 16:27 → 1NO 20:20 → CRI 03-28 13:28 → 2NB 03-30 14:30
PROVIDERS: Emergency Medicine; Internal Medicine Infectious Disease; Student in an Organized Health Care Education/Training Program; ADMIT Internal Medicine
DX: F10.239 Alcohol dependence with withdrawal, unspecified (principal); E87.2 Acidosis; R56.9 Unspecified convulsions; I16.0 Hypertensive urgency; I25.2 Old myocardial infarction; E87.6 Hypokalemia; E83.42 Hypomagnesemia; I25.10 Atherosclerotic heart disease of native coronary artery without angina pectoris; Z87.891 Personal history of nicotine dependence; G89.29 Other chronic pain; M79.672 Pain in left foot; S92.812A Other fracture of left foot, initial encounter for closed fracture; W19.XXXA Unspecified fall, initial encounter; Y92.009 Unspecified place in unspecified non-institutional (private) residence as the place of occurrence of the external cause
CPT/HCPCS: 1NP; 2NBSP; CCU; 36415; 73630-LT; 80307; 81001; 82436; 87070; 87086; 87804; 87804-59; 93005; 93010; 93306; 97116-GO; 97162-GP; 97530-GO; 99232; G0480; J0131; J1630; J1644; J2060; J3360; J3490; J7060

== ENCOUNTER 2016-05-17 17:15 | Emergency (ER) | payer OTHER ==
[~2016-05-17] VITALS: Ht 162.6 cm; Wt 59.0 kg
[~2016-05-17 17:15] MED LIST changes: +FOLIC ACID1 M1 PO; +LABETALOL HCL200 M1 PO; +MULTIVITAMINS1 EAC8 PO; +NICOTINE PATCH1 EAC2 TOP; +PERCOCET 5-3251 EACH PO
--- NOTE | 2016-05-17 18:07 | ED PSYCHIATRIC COMPLAINT ---
History of Present Illness General Chief Complaint: ETOH/Drug Related Complaint Stated Complaint: BIBA REQ ETOH DETOX Source: patient Exam Limitations: no limitations Vital Signs & Intake/Output Vital Signs & Intake/Output Vital Signs Date Time Temp Pulse Resp B/P Pulse O2 O2 Flow FiO2 Ox Delivery Rate 05/18 1045 97.0 64 20 160/90 05/18 1045 97.0 94 20 160/90 97 Room Air 05/18 1038 97.0 94 20 169/101 05/18 0930 98.0 98 20 192/100 05/18 0915 98.0 98 20 192/100 05/18 0913 98.0 98 20 192/100 99 Room Air 05/18 0645 96.8 86 18 160/78 05/18 0628 96.8 86 18 160/78 100 Room Air 05/18 0425 96.6 94 18 162/102 05/18 0409 96.6 94 18 162/102 98 Room Air 05/18 0104 97.7 114 18 188/110 97 Room Air 05/18 0103 97.7 114 18 188/110 05/17 2234 98.0 88 18 138/66 98 Room Air 05/17 2230 98.0 88 18 138/66 05/17 2032 97.8 85 18 154/85 05/17 2025 97.8 85 18 154/85 99 Room Air 05/17 1948 86 184/104 05/17 1813 98.9 92 20 198/110 05/17 1748 99.2 95 20 195/78 98 Room Air ED Intake and Output 05/18 0000 05/17 1200 Intake Total Output Total Balance Patient 130 lb Weight Allergies Coded Allergies: Penicillins (Severe, RASH, HIVES 04/14/15) Triage Note: SEE NURSES NOTE Triage Nurses Notes Reviewed? yes Onset: Gradual Duration: worse persistent since (3 MONTHS) Timing: remote history Severity: severe Severity Numbers: 10 Associated Symptoms: anxiety, impaired concentration, suicidal ideation HPI: Patient is a 55-year-old female with history of alcohol abuse and withdrawal seizures emergency department complaint of wanting alcohol detox. Patient also reporting that she is suicidal. She has remote history of alcohol abuse, was admitted for detox in 2002. She's been sober ever since. 3 months ago her had surgery and they relapsed. Patient reports that she's been drinking hard alcohol daily. She had 3 "shooters" today prior to arrival. Denies any other drug abuse. She does report history of withdrawal seizures, most recently being within the past 30 days. She says that she didn't drink alcohol for approximately one hour and she had a seizure. Denies any injury with a seizure. Patient denying any headaches or visual changes. No chest pain or palpitations. No abdominal pain. No nausea or vomiting. History of hypertension, she did not take her medications today. She does report increasing suicidal ideation. She has a plan where she would want to jump off of a building. She was calling her primary care physician today and they told her to come immediately to the emergency department. (LEONID JARQUIN) Reconcile Medications Folic Acid 1 MG TABLET 1 TAB PO DAILY Supplement Labetalol HCl 200 MG TABLET 1 TAB PO BID HIGH BLOOD PRESSURE Lorazepam (Ativan) 1 MG TABLET 1 TAB PO TID PRN alcohol withdrawal today: 1 tab 3x/day tomorrow: 1 tab 2x/day following day: 1 tab Multivitamin (Multivitamins) 1 EACH CAPSULE 1 TAB PO DAILY Supplement Nicotine (Nicotine Patch) 14 MG/24 HOUR PATCH.TD24 1 PAT TOP DAILY TOBACCO CESSATION Oxycodone HCl/Acetaminophen (Percocet 5-325 MG Tablet) 5 MG-325 MG TABLET 1 TAB PO BID PRN musculoskeletal pain (JUSTYNA JOHNSON,MICHAEL) Past History Travel History Traveled to [place] past 21 day No Medical History Any Pertinent Medical History? see below for history Neurological: NONE EENT: NONE Cardiovascular: hypertension, stress induced [place] Respiratory: NONE Gastrointestinal: NONE Hepatic: NONE Renal: NONE Musculoskeletal: CERVICAL STENOSIS AND FX Psychiatric: NONE Endocrine: NONE Blood Disorders: NONE Cancer(s): NONE History of MRSA: No History of VRE: No History of CDIFF: No Surgical History Surgical History: , NECK SURGERY Psychosocial History Who do you live with Spouse What is your primary language Hungarian Tobacco Use: Current Daily Use Daily Tobacco Use Amount/Type: => 5 Cigarettes daily ETOH Use: alcoholic Illicit Drug Use: denies illicit drug use Family History Family History, If Any: MOTHER CABG Hx Contributory? No (LEONID JARQUIN) Review of Systems Review of Systems Constitutional: Reports: no symptoms. Comments Review of systems: See HPI, All other systems negative. Constitutional, no chills fever or weight loss HEENT: No visual changes no sore throat no congestion Cardiovascular: No chest pain ,palpitation Skin, no jaundice no rashes Respiratory: No dyspnea cough sputum or hemoptysis GI: No nausea no vomiting : No dysuria No hematuria Muscle skeletal: no back pain, no neck pain, Neurologic: No numbness no confusion Psych: Positive stress, anxiety and depression Heme/endocrine: No bruising no bleeding no polyuria or polydipsia Immunology: No splenectomy or history of AIDS (LEONID JARQUIN) Physical Exam Physical Exam General Appearance: intoxicated Neurological/Psychiatric: oriented x 3 Comments: Well-developed well-nourished person in no acute distress HEENT: Pupils equally round and reactive to light and accommodation. Nose is atraumatic. Neck: Normal inspection Back: Nontender Cardiovascular: Regular rate and rhythms no murmurs rubs or gallops, normal JVP Respiratory: Chest nontender. No respiratory distress.breath sounds clear to auscultation bilaterally Extremity: No edema Neuro: Alert oriented x3 Skin: No appreciable rash on exposed skin, skin is warm and dry. Psych: Intoxicated, tearful SAD PERSONS SAD PERSONS Response Value Age <19 or >45 years? yes 1 Depression/Hopelessness? yes 2 Excessive Ethanol/Drug Use? yes 1 Rational Thinking Loss? yes 2 Social Support? has support 0 Stated Future Intent? yes 2 Total 8 SAD PERSONS Done? yes (LEONID JARQUIN) Progress Differential Diagnosis: ALCOHOL INTOXICATION, ALCOHOL DEPENDENCE,POLYSUBSTANCE ABUSE, SUICIDAL IDEATION, MAJOR DEPRESSIVE DISORDER Plan of Care: Orders Procedure Date/time Status Heart Healthy Diet 05/18 B Active Continuous Observation Monitor 05/18 0900 Active Add-on Test (ER Only) 05/17 1901 Active EKG 05/17 1901 Active Continuous Observation Monitor 05/17 1815 Active CIWA 05/17 1806 Active ED CRISIS PSYCH CONSULT 05/17 1806 Active TROPONIN LEVEL 05/17 1745 Complete LIPASE 05/17 1728 Complete ETHANOL 05/17 1728 Complete COMPREHENSIVE METABOLIC PANEL 05/17 1728 Complete CBC WITHOUT DIFFERENTIAL 05/17 1728 Complete AMYLASE 05/17 1728 Complete URINE DRUGS OF ABUSE 05/17 1727 Complete Laboratory Tests 05/17/16 1800: Urine Opiates Screen < 100.00, Methadone Screen < 40, Barbiturate Screen < 60, Ur Phencyclidine Scrn < 6.00, Amphetamines Screen 166, U Benzodiazepines Scrn < 85, Urine Cocaine Screen < 50, Urine Cannabis Screen < 5.00 05/17/16 1745: Anion Gap 18 H, Estimated GFR > 60, BUN/Creatinine Ratio 17.5, Glucose 107 H, Calcium 9.8, Total Bilirubin 0.5, AST 28, ALT 28, Alkaline Phosphatase 93, Troponin I < 0.01, Total Protein 9.2 H, Albumin 4.9, Globulin 4.3 H, Albumin/ Globulin Ratio 1.1, Amylase 71, Lipase 133, CBC w Diff NO MAN DIFF REQ, RBC 5.43 H, MCV 89.9, MCH 29.7, RDW 15.1 H, MPV 8.3, Gran % 43.5, Lymphocytes % 47.6, Monocytes % 5.2, Eosinophils % 3.0, Basophils % 0.7, Absolute Granulocytes 3.6, Absolute Lymphocytes 3.9 H, Absolute Monocytes 0.4, Absolute Eosinophils 0.2, Absolute Basophils 0.1, PUBS MCHC 33.0, Serum Alcohol 242.0 Hand-Off Endorsed To: MICHAEL JANSEN MD Endorsed Time: 2300 Pending: consult Comments: CIWA on arrival is 11. Patient medicated with Ativan to help with hypertension. Patient will be monitored, patient will see crisis once clinically sober for suicidal ideation. 05/17/2016 11:09:04 PM patient signed out to Dr. qureshi pending consultation with crisis. (LEONID JARQUIN) Hand-Off Endorsed To: ADRIEL NICHOLS MD Endorsed Time: 0700 Pending: consult (CRISIS) (MICHAEL JANSEN MD) Comments: 05/18/2016 10:49:52 AM Carmen has been evaluated by crisis and will be following up with an outpatient appointment. She states that she wishes to quit alcohol use (she began drinking again as a result of an injury to her in March). I will provide a short course of Ativan. (ADRIEL NICHOLS MD) Departure Departure Condition: Stable Referrals: JESSICA DEWEY MD (PCP/Family) Departure Forms: Customer Survey General Discharge Information (LEONID JARQUIN) PA/PRODUCTION INTERN Co-Sign Statement Statement: ED Attending supervision documentation- [] I saw and evaluated the patient. I have also reviewed all the pertinent lab results and diagnostic results. I agree with the findings and the plan of care as documented in the PA's/PRODUCTION INTERN's documentation. [X] I have reviewed the ED Record and agree with the PA's/PRODUCTION INTERN's documentation. [] Additions or exceptions (if any) to the PAs/PRODUCTION INTERN's note and plan are summarized below: [] (JUSTYNA JOHNSON,MICHAEL) Departure Disposition: HOME OR SELF CARE Clinical Impression Primary Impression: Alcohol intoxication Qualifiers: Complication of substance-induced condition: uncomplicated Qualified Code: F10.120 - Alcohol abuse with intoxication, uncomplicated Secondary Impressions: Alcohol dependence Qualifiers: Substance use status: uncomplicated Qualified Code: F10.20 - Alcohol dependence, uncomplicated Depression Qualifiers: Depression Type: unspecified Qualified Code: F32.9 - Major depressive disorder, single episode, unspecified Additional Instructions: If you plan to abstain from alcohol please take the Ativan as prescribed. Follow-up with your primary care doctor within the next 48 hours for reevaluation. Follow-up as outlined by the wooden shade hardware installer regarding depression or other emotional considerations. Return if any concerns or sudden worsening. Prescriptions: Current Visit Scripts Lorazepam (Ativan) 1 TAB PO TID PRN alcohol withdrawal #6 TAB today: 1 tab 3x/day tomorrow: 1 tab 2x/day following day: 1 tab (SIMONE JOHNSON,ADRIEL Lundberg)
[2016-05-17 18:08] LABS: ABSOLUTE BASOPHIL COUNT 0.1 /CUMM (0.0-0.2); ABSOLUTE EOSINOPHIL COUNT 0.2 /CUMM (0.0-0.7); ABSOLUTE GRANULOCYTE CT 3.6 /CUMM (1.4-6.5); ABSOLUTE LYMPH COUNT 3.9 /CUMM (1.2-3.4); ABSOLUTE MONOCYTE COUNT 0.4 /CUMM (0.10-0.60); BASOPHIL % 0.7 % (0.0-2.0); GRANULOCYTE % 43.5 % (42.2-75.2); HEMATOCRIT 48.8 % (37-47); MEAN CORPUSCULAR HGB 29.7 PG (27.0-31.0); MEAN CORPUSCULAR VOLUME 89.9 FL (81.0-99.0); MEAN PLATELET VOLUME 8.3 FL (7.4-10.4); PLATELET COUNT 260 /CUMM (130-400); RBC DISTRIBUTION WIDTH 15.1 % (11.5-14.5); RED BLOOD CELL CT 5.43 /CUMM (4.20-5.40); WHITE BLOOD CELL COUNT 8.2 /CUMM (4.8-10.8)
--- NOTE | 2016-05-17 20:28 | ED PSY CRISIS COLLATERAL NOTE ---
Collateral Note Collateral Note Family/Inform/Harriett Contacts: Crisis consult received, however the patient will not be seen tonight, as her BAL is too high to complete the evaluation. SW attempted to gain collateral from her Lobito De La Garza, however he was not able to be reached. Lobito was called on both listed phone numbers, a message was left at the [phone] number and his other listed number ([phone]), the mailbox was full and a message could not be left.
--- NOTE | 2016-05-18 09:57 | ED PSYCH CRISIS CONSULTATION ---
Crisis Consult Basic Assessment Date of Consult: 05/18/16 Responsible Person/Accompanied By: Self Insurance Authorization: Insurance #1: Insurance name: SELF-PAY Phone number: Policy number: Group number: Authorization number: ED Provider: Patient's ED Provider: LEONID JARQUIN Primary Care Physician: Patient's PCP: JESSICA DEWEY MD PCP's Chief Complaint: ETOH/Drug Related Complaint Patient's Quote: " I'm depressed." Present Illness: Pt is 55 yo female BIBA from for postive SI and alcohol intoxication on 05/17. Pt UTOX was negative for substances and DARRYL was 242 when she came in. This AM pt said she relapsed on alcohol March 2016 after 8 1/2 years of sobriety. Pt denies current SI/HI/AVH. She said her recently fell off a roof during work ( Apr 03) and broke his back, had surgery and is now at home until he gets better. Pt said she has been struggling with the financial stressors and is unsure of how she feels today. She stated she was having suicidal thoughts all day of jumping off a roof yesterday but stated she has no intention. Pt said she is very overwhlemed, depressed and became tearful during the assessment. Pt denies hx of suicide attempts and hospitalizations. She said her last inpatient detox was in 2002 [facility]. Pt said during her sober years she attended [employer] women's groups and got and now has a 12 yo son. She said DCF is involved after having withdrawal seizure a month ago and the police were called. Clinician discussed IOP treatment and pt stated she had mixed feelings but would like how local it would be to her son. Per collateral with Michelle sister [phone]: Michelle is looking after son Lobito Vásquez, and is supportive of pt going to rehab and getting treatment. Michelle stated she has no safety concerns at this time. Collateral with -Lobito [phone]: Lobito gave insurance information over the phone. She is coverd through his insurance [facility] . PCP [phone]- [facility]: This food writer spoke with Dr. Marrero . Pt wants to get help with the alcohol, hx of depression and high blood pressure. PCP recommends IOP or Rehab. PCP has no safety concerns. Patient's Address: [address] [place] [address] Other Phone Number: Who Do You Live With? Spouse Family/Informants Interviewed: Michelle- sister, Lobito- Allergies - Coded Allergies: Penicillins (Severe, RASH, HIVES 04/14/15) Current Medications - Scheduled Medications Folic Acid 1 MG TABLET 1 TAB PO DAILY Supplement #30 TAB Prescribed by RAMAN RAMÍREZ on 04/02/16 Labetalol HCl 200 MG TABLET 1 TAB PO BID HIGH BLOOD PRESSURE #60 TAB Multivitamin (Multivitamins) 1 EACH CAPSULE 1 TAB PO DAILY Supplement #30 TAB Prescribed by RAMAN RAMÍREZ on 04/02/16 Nicotine (Nicotine Patch) 14 MG/24 HOUR PATCH.TD24 1 PAT TOP DAILY TOBACCO CESSATION #28 PAT Scheduled PRN Medications Oxycodone HCl/Acetaminophen (Percocet 5-325 MG Tablet) 5 MG-325 MG TABLET 1 TAB PO BID PRN musculoskeletal pain #15 TAB [facility] Laboratory Results: Laboratory Tests 05/17/16 1800: Urine Opiates Screen < 100.00, Methadone Screen < 40, Barbiturate Screen < 60, Ur Phencyclidine Scrn < 6.00, Amphetamines Screen 166, U Benzodiazepines Scrn < 85, Urine Cocaine Screen < 50, Urine Cannabis Screen < 5.00 05/17/16 1745: Anion Gap 18 H, Estimated GFR > 60, BUN/Creatinine Ratio 17.5, Glucose 107 H, Calcium 9.8, Total Bilirubin 0.5, AST 28, ALT 28, Alkaline Phosphatase 93, Troponin I < 0.01, Total Protein 9.2 H, Albumin 4.9, Globulin 4.3 H, Albumin/ Globulin Ratio 1.1, Amylase 71, Lipase 133, CBC w Diff NO MAN DIFF REQ, RBC 5.43 H, MCV 89.9, MCH 29.7, RDW 15.1 H, MPV 8.3, Gran % 43.5, Lymphocytes % 47.6, Monocytes % 5.2, Eosinophils % 3.0, Basophils % 0.7, Absolute Granulocytes 3.6, Absolute Lymphocytes 3.9 H, Absolute Monocytes 0.4, Absolute Eosinophils 0.2, Absolute Basophils 0.1, PUBS MCHC 33.0, Serum Alcohol 242.0 Past History Past Medical History Neurological: NONE EENT: NONE Cardiovascular: hypertension, stress induced [place] Respiratory: NONE Gastrointestinal: NONE Hepatic: NONE Renal: NONE Musculoskeletal: CERVICAL STENOSIS AND FX Psychiatric: NONE Endocrine: NONE Blood Disorders: NONE Cancer(s): NONE Past Surgical History Surgical History: , NECK SURGERY Psychosocial History Strengths/Capabilities: Pt is motivated to get detox and treatment for ETOH. Physical Limitations (Interventions): none Psychiatric Treatment History Psych Treatment Psychiatric Treatment No Inpatient Treatment No Outpatient Treatment No Diagnosis by History: Pt reports anxiety and depression but never received treatment. Substance Use/Abuse History Drug Use/Abuse Substances Used/Abused Yes Substance Used/Abused Alcohol First Use 25 yo Last Used 05/17/16 How much used/taken 5 nips How often daily For how long since she relapsed in Mar. Route of use oral Substance Abuse Treatment Substance Abuse Treatment Past Substance Abuse [place] Yes Inpatient Treatment Yes Outpatient Treatment No Location of Treatment [place] Reason for Treatment ETOH Dates of Treatment 2002 Response to Treatment 8 1/2 years sober Comments: Pt is seeking detox and inpatient rehabilitation for ETOH use. Current Mental Status Mental Status Orientation: Person, Place, Situation Affect: Anxious, Depressed, Sad Speech: WNL Neuro-vegetative: Appetite Decreased, Sleep Disturbance Appearance Appearance- Dress/Hygiene: Pt is dressed in blue hospital gown, wearing glasses, hair disheveled and roots grown out. Behaviors Thought Process: WNL Thought Content: WNL Memory: WNL Insight: Fair SI/HI Risk Assessment Past Suicidal Ideation/Attempts Yes Current Suicidal Ideation/Att No Past Homicidal Ideation/Att: No Current Homicidal Ideation/Attempts No Degree of Intent: Thoughts/No Intent Risk Factors: high anxiety/distress, SA/MH hospitalized, substance abuse, poor impulse control Lethality Ratin (mild) PTSD Checklist PTSD Done? pt unable to participate ED Management Sitter: Yes Restraints: No DSM5/PS Stressors/Medical Prob Diagnosis' (DSM 5, Stressors, Medical): F10.20 Alcohol use d/o severe F32.9 unspecified depression d/o medical: hx of withdrawal seizures ( last one in Mar 2016) pschosocial: unemployed, financial issues, problems with primary relationships, DCF involvement Current GAF: 38 Departure Disposition Psych Medical Clearance Date: 05/18/16 Medically Cleared at: 0840 Time Started: 0840 Time Ended: 939 Psychiatrist Consulted: Radha JOHNSON,Edward Date Disposition Established: 05/18/16 Time Disposition Established: 1029 Plan for Disposition - Modality: IOP Facility: [facility] Follow-up Appt Date: 05/21/16 Follow-Up Appt Time: 929 Contact: Dunia Lou Rationale for Disposition: Pt denies feeling suicidal today and stated she had no intent. She reported worsening symptoms of depression and is upset with her recent relapse on ETOH after 8 1/2 years of sobriety. Pt has no hx of suicide attempts. Dr. Garcia was consulted and recommended IOP at . Pt is agreeable to [facility] level of care. Pt was given additional resources for detox and programs per her request. Additional Instructions: Pt will call 911 and go to nearest ED if she feels unsafe. Referrals MACO JOHNSON,JESSICA Soto (PCP/Family)
[2016-05-18 10:45] VITALS: BP 160/90
[2016-05-18] MEDS ORDERED: ATIVAN1 M1 PO (10:52)
== END 2016-05-18 11:00 ==
LOC: ERH 17:15
PROVIDERS: Emergency Medicine
DX: F10.10 Alcohol abuse, uncomplicated (principal); F32.9 Major depressive disorder, single episode, unspecified; F10.20 Alcohol dependence, uncomplicated; I10 Essential (primary) hypertension
CPT/HCPCS: 80307; 93005; 93010; 96374; 96376; G0463; G0480; J3101